=== PATIENT | male | born 1955 | race Caucasian/White ===

== ENCOUNTER 2020-05-02 09:47 | Observation (INO) ==
[2020-05-02] MEDS ORDERED: PANTOPRAZOLE 40 MG VIAL IV STA (10:22)
[2020-05-02] MEDS ORDERED: SODIUM CHLORIDE 0.9% 1,000 ML IV STA (10:22)
[2020-05-02 10:52] LABS: Basophils # 0.1 10*3/uL (0.0-0.2); Basophils % 0.5 % (0.0-0.8); Eosinophils # 0.3 10*3/uL (0.0-0.87); Eosinophils % 2.3 % (0.00-10.9); Hematocrit 32.9 VOL% (42.0-52.0); Hemoglobin 10.9 GM/DL (14.0-18.0); Immature Granulocytes % 0.6 %; Immature Granulocytes Absolute 0.07 #; Lymphocytes % 17.5 % (21.2-54.2); Mean Corpuscular HGB Conc 33.1 GM/DL (32-36); Mean Corpuscular Volume 95.1 FL (87-102); Mean Platelet Volume 10.1 FL (9.6-12.0); Monocytes % 9.7 % (1.7-12.7); Neutrophils % 69.4 % (38.7-73.9); Platelet Count 270 T/CUMM (130-400); Red Blood Count 3.46 MC/CUMM (3.8-5.5); Red Cell Distribution Width 13.2 % (9.3-17.3); White Blood Count 11.6 T/CUMM (4-12)
[2020-05-02 11:03] LABS: INR 0.9; Partial Thromboplastin Time 24.6 SECS (23.9-33.8)
[2020-05-02 11:12] LABS: Bilirubin,Total 0.4 MG/DL (0.2-1.0); Calcium 8.7 MG/DL (8.5-10.1); Osmolality,Calculated 266.2 MOS/KG (273-304); Potassium 4.1 MMOL/L (3.5-5.1); Total Protein 7.3 G/DL (6.4-8.3)
[2020-05-02] MEDS ORDERED: GLUCAGON 1 MG VIAL IM PRN (14:05)
[2020-05-02] MEDS ORDERED: DEXTROSE 50% 25 GM/50 ML VIAL IV PRN (14:05)
[2020-05-02] MEDS ORDERED: ONDANSETRON 4 MG/2 ML VIAL IV PRN (14:05)
[2020-05-02] MEDS ORDERED: NICOTINE 21 MG/24 HR PATCH TRANSDERM SCH (14:30)
[2020-05-02] MEDS ORDERED: SODIUM CHLORIDE 0.9% 1,000 ML IV SCH (14:30)
[2020-05-02] MEDS ORDERED: ALBUTEROL 2.5 MG/3 ML NEB RESP TX PRN (15:44)
[2020-05-02] MEDS ORDERED: LORazepam 2 MG/1 ML VIAL IV PRN (16:15)
[2020-05-02] MEDS ORDERED: THIAMINE INJ 100 MG, FOLIC ACID INJ 1 MG, MULTIVITAMIN INJ 10 ML in SODIUM CHLORIDE 0.9... IV SCH (16:30)
[2020-05-02 16:37] LABS: Hematocrit 30.7 VOL% (42.0-52.0); Hemoglobin 9.9 GM/DL (14.0-18.0)
[2020-05-03 00:49] LABS: Hematocrit 30.5 VOL% (42.0-52.0); Hemoglobin 9.9 GM/DL (14.0-18.0)
[2020-05-03 05:27] LABS: Basophils % 0.4 % (0.0-0.8); Eosinophils # 0.2 10*3/uL (0.0-0.87); Eosinophils % 2.4 % (0.00-10.9); Hematocrit 32.1 VOL% (42.0-52.0); Hemoglobin 10.3 GM/DL (14.0-18.0); Immature Granulocytes % 0.5 %; Immature Granulocytes Absolute 0.04 #; Lymphocytes # 1.5 10*3/uL (1.4-4.0); Lymphocytes % 19.8 % (21.2-54.2); Mean Corpuscular HGB Conc 32.1 GM/DL (32-36); Mean Corpuscular Volume 97.3 FL (87-102); Mean Platelet Volume 9.7 FL (9.6-12.0); Neutrophils % 66.9 % (38.7-73.9); Platelet Count 223 T/CUMM (130-400); Red Cell Distribution Width 13.2 % (9.3-17.3); White Blood Count 7.6 T/CUMM (4-12)
[2020-05-03 06:01] LABS: Calcium 8.2 MG/DL (8.5-10.1); Osmolality,Calculated 271.7 MOS/KG (273-304); Potassium 3.6 MMOL/L (3.5-5.1)
[2020-05-03] MEDS ORDERED: IPRATROPIUM 500 MCG/2.5 ML NEB RESP TX SCH (09:00)
[2020-05-03] MEDS ORDERED: PANTOPRAZOLE 40 MG VIAL IV SCH (09:00)
[2020-05-03 13:40] VITALS: BP 150/83
== END 2020-05-03 13:05 | disposition left against medical advice (07) ==
LOC: N.EDINP 09:47 → N.ED 09:47 → SUATTDRO 14:05 → N.3E 15:45
PROVIDERS: ADMIT Internal Medicine; ATTEND Phlebology

== ENCOUNTER 2020-12-24 13:19 | Observation (INO) ==
[2020-12-24] MEDS ORDERED: ASPIRIN 325 MG TABLET PO STA (13:25)
[2020-12-24 13:48] LABS: Basophils % 0.2 % (0.0-0.8); Eosinophils % 0.2 % (0.00-10.9); Hematocrit 34.9 VOL% (42.0-52.0); Hemoglobin 11.4 GM/DL (14.0-18.0); Immature Granulocytes % 0.4 %; Immature Granulocytes Absolute 0.05 #; Mean Corpuscular HGB Conc 32.7 GM/DL (32-36); Mean Corpuscular Volume 80.2 FL (87-102); Mean Platelet Volume 9.1 FL (9.6-12.0); Monocytes % 5.2 % (1.7-12.7); Platelet Count 267 T/CUMM (130-400); Red Blood Count 4.35 MC/CUMM (3.8-5.5); Red Cell Distribution Width 15.6 % (9.3-17.3); White Blood Count 12.2 T/CUMM (4-12)
[2020-12-24 14:07] LABS: Alanine Aminotransferase 20 U/L (16-61); Albumin 3.9 G/DL (3.4-5.0); Alkaline Phosphatase 91 U/L (45-117); Aspartate Amino Transferase 21 U/L (0-37); Bilirubin,Total < 0.39 MG/DL (0.20-1.00); Blood Urea Nitrogen 14 MG/DL (7-18); Calcium 9.2 MG/DL (8.5-10.1); Carbon Dioxide 21 MMOL/L (21-32); Estimated Glom Filtration Rate 63 ML/MIN; Glucose 161 MG/DL (74-106); Osmolality,Calculated 258.2 MOS/KG (273-304); Potassium 5.2 MMOL/L (3.5-5.1); Sodium 127 MMOL/L (136-145); Total Protein 7.5 G/DL (6.4-8.2)
[2020-12-24] MEDS ORDERED: SODIUM CHLORIDE 0.9% 500 ML IV STA (14:10)
[2020-12-24] MEDS ORDERED: PIPERACILLIN/TAZOBACTAM 3,375 MG in SODIUM CHLORIDE 0.9% 100 ML IV STA (15:39)
[2020-12-24] MEDS ORDERED: ONDANSETRON 4 MG/2 ML VIAL IV PRN (15:49)
[2020-12-24] MEDS ORDERED: ACETAMINOPHEN 325 MG TABLET PO PRN (15:49)
[2020-12-24] MEDS ORDERED: MORPHINE 10 MG/1 ML VIAL IV STA (15:52)
[2020-12-24] MEDS: SODIUM CHLORIDE 0.45% 1,000 ML IV SCH (16:51)
[2020-12-24] MEDS: PIPERACILLIN/TAZOBACTAM 3,375 MG in SODIUM CHLORIDE 0.9% 100 ML IV SCH (18:44)
[2020-12-25] MEDS: PIPERACILLIN/TAZOBACTAM 3,375 MG in SODIUM CHLORIDE 0.9% 100 ML IV SCH ×3 (00:34→18:14)
[2020-12-25] MEDS: SODIUM CHLORIDE 0.45% 1,000 ML IV SCH (00:35)
[2020-12-25] MEDS: PANTOPRAZOLE 40 MG TABLET PO SCH (08:49)
[2020-12-25] MEDS ORDERED: ASPIRIN EC 81 MG TABLET PO PRN (09:18)
[2020-12-25] MEDS ORDERED: ALBUTEROL 2.5 MG/3 ML NEB RESP TX PRN (09:18)
[2020-12-25 09:34] LABS: Basophils % 0.2 % (0.0-0.8); Eosinophils # 0.1 10*3/uL (0.0-0.87); Eosinophils % 1.4 % (0.00-10.9); Hematocrit 30.4 VOL% (42.0-52.0); Hemoglobin 10.1 GM/DL (14.0-18.0); Immature Granulocytes % 0.5 %; Immature Granulocytes Absolute 0.04 #; Lymphocytes # 1.6 10*3/uL (1.4-4.0); Mean Corpuscular HGB Conc 33.2 GM/DL (32-36); Mean Corpuscular Volume 80.6 FL (87-102); Mean Platelet Volume 9.6 FL (9.6-12.0); Monocytes % 16.2 % (1.7-12.7); Neutrophils % 63.7 % (38.7-73.9); Platelet Count 233 T/CUMM (130-400); Red Blood Count 3.77 MC/CUMM (3.8-5.5); Red Cell Distribution Width 15.7 % (9.3-17.3); White Blood Count 8.7 T/CUMM (4-12)
[2020-12-25 09:53] LABS: Eosinophils 2 % (0-10); Hypochromasia 1+; Lymphocytes 19 % (20-55); Microcytosis 1+; Platelet Estimate Adequate; Segmented Neutrophils 65 % (50-85); Total Cells Counted 100
[2020-12-25 09:54] LABS: Bilirubin,Total 0.4 MG/DL (0.20-1.00); Calcium 8.6 MG/DL (8.5-10.1); Osmolality,Calculated 264.4 MOS/KG (273-304); Potassium 4.5 MMOL/L (3.5-5.1); Total Protein 6.8 G/DL (6.4-8.2)
[2020-12-25] MEDS ORDERED: MAGNESIUM SULF RIDER 2 GM/50 ML PREMIX IV PRN (10:03)
[2020-12-25] MEDS ORDERED: MAGNESIUM SULF RIDER 4 GM/100 ML PREMIX IV PRN (10:03)
[2020-12-25] MEDS ORDERED: DIAZEPAM 5 MG TABLET PO PRN (10:33)
[2020-12-25] MEDS: IPRATROPIUM 500 MCG/2.5 ML NEB RESP TX SCH ×3 (11:44→20:35)
[2020-12-25 13:00] LABS: Bilirubin,Urine Negative (Negative); Blood, Urine Negative (Negative); Glucose,Urine (UA) Negative (Negative); Ketones,Urine Negative (Negative); Mucus,Urine Occasional /LPF (Occasional); Nitrite,Urine Negative (Negative); Protein,Urine Negative; RBC,Urine <1 /HPF (0-4); Squamous Epithelial Cell,Urine Occasional /HPF (0-10); Urine Appearance CLEAR (Clear); Urine Color Yellow (Yellow); Urine Specific Gravity 1.015 (1.001-1.035); Urine Urobilinogen < 2.0 EU/DL (0.2-1.0)
[2020-12-25] MEDS: THIAMINE 100 MG TABLET PO SCH (15:54)
[2020-12-25] MEDS: NICOTINE 21 MG/24 HR PATCH TRANSDERM SCH (15:54)
[2020-12-25] MEDS: FOLIC ACID 1 MG TABLET PO SCH (15:54)
[2020-12-25] MEDS: MULTIVITAMIN (CENTRUM) TABLET PO SCH (15:54)
[2020-12-25] MEDS: GABAPENTIN 100 MG CAPSULE PO SCH (20:17)
[2020-12-25] MEDS: TAMSULOSIN 0.4 MG CAPSULE PO SCH (20:17)
[2020-12-26] MEDS: PIPERACILLIN/TAZOBACTAM 3,375 MG in SODIUM CHLORIDE 0.9% 100 ML IV SCH ×3 (01:00→16:31)
[2020-12-26] MEDS: IPRATROPIUM 500 MCG/2.5 ML NEB RESP TX SCH ×4 (07:17→20:27)
[2020-12-26] MEDS: MULTIVITAMIN (CENTRUM) TABLET PO SCH (08:56)
[2020-12-26] MEDS: THIAMINE 100 MG TABLET PO SCH (08:56)
[2020-12-26] MEDS: GABAPENTIN 100 MG CAPSULE PO SCH ×2 (08:56→21:05)
[2020-12-26] MEDS: NICOTINE 21 MG/24 HR PATCH TRANSDERM SCH (08:56)
[2020-12-26] MEDS: FOLIC ACID 1 MG TABLET PO SCH (08:56)
[2020-12-26] MEDS: amLODIPine 10 MG TABLET PO SCH (08:56)
[2020-12-26] MEDS: LOSARTAN 50 MG TABLET PO SCH (08:57)
[2020-12-26] MEDS: PANTOPRAZOLE 40 MG TABLET PO SCH (08:57)
[2020-12-26] MEDS: SODIUM CHLORIDE 0.45% 1,000 ML IV SCH (17:54)
[2020-12-26] MEDS ORDERED: ALUMINUM/MAGNES/SIMETH MAX STR 30 ML UDCUP PO PRN (20:54)
[2020-12-26] MEDS: TAMSULOSIN 0.4 MG CAPSULE PO SCH (21:05)
[2020-12-27] MEDS: PIPERACILLIN/TAZOBACTAM 3,375 MG in SODIUM CHLORIDE 0.9% 100 ML IV SCH ×2 (01:03→11:27)
[2020-12-27] MEDS: IPRATROPIUM 500 MCG/2.5 ML NEB RESP TX SCH ×2 (07:22→11:30)
[2020-12-27] MEDS ORDERED: INDOCYANINE GREEN 25 MG VIAL IV ONE (08:24)
[2020-12-27] MEDS ORDERED: LIDOCAINE 1%/EPI INJ 20 ML VIAL ONE (08:26)
[2020-12-27] MEDS ORDERED: HYDROmorphone 2 MG/1 ML VIAL IV PRN (08:26)
[2020-12-27] MEDS ORDERED: ONDANSETRON 4 MG/2 ML VIAL IV PRN (08:26)
[2020-12-27] MEDS ORDERED: PROMETHAZINE INJ 25 MG in SODIUM CHLORIDE 0.9% 50 ML IV PRN (08:26)
[2020-12-27] MEDS ORDERED: diphenhydrAMINE 50 MG/1 ML VIAL IV PRN (08:26)
[2020-12-27] MEDS ORDERED: BUPIVACAINE MPF 0.25% 30 ML VIAL ONE (08:26)
[2020-12-27] MEDS ORDERED: TISSUE ADHESIVE 1 EACH APPLICATOR TOP ONE (08:26)
[2020-12-27] MEDS ORDERED: MEPERIDINE 50 MG/1 ML VIAL IV PRN (08:30)
[2020-12-27] MEDS: SODIUM CHLORIDE 0.45% 1,000 ML IV SCH (08:46)
[2020-12-27] MEDS ORDERED: ACETAMINOPHEN INJ 1,000 MG/100 ML VIAL IV ONE (09:12)
[2020-12-27] MEDS ORDERED: PHENYLEPHRINE 1 MG/10 ML SYRINGE IV ONE (09:12)
[2020-12-27] MEDS ORDERED: fentaNYL 100 MCG/2 ML VIAL ONE ×2 (09:12→10:05)
[2020-12-27] MEDS ORDERED: LIDOCAINE 2% 5 ML VIAL ONE (09:12)
[2020-12-27] MEDS ORDERED: SEVOFLURANE 1 UNIT/15 MINUTE INH ONE (09:12)
[2020-12-27] MEDS ORDERED: ONDANSETRON 4 MG/2 ML VIAL ONE (09:12)
[2020-12-27] MEDS ORDERED: ETOMIDATE 40 MG/20 ML VIAL IV ONE (09:12)
[2020-12-27] MEDS ORDERED: propofoL 200 MG/20 ML VIAL IV ONE (09:12)
[2020-12-27] MEDS ORDERED: MIDAZOLAM 2 MG/2 ML VIAL ONE (09:12)
[2020-12-27] MEDS ORDERED: ROCURONIUM 50 MG/5 ML VIAL IV ONE (09:12)
[2020-12-27] MEDS ORDERED: SUGAMMADEX 200 MG/2 ML VIAL IV ONE (10:02)
[2020-12-27] MEDS: LOSARTAN 50 MG TABLET PO SCH (11:26)
[2020-12-27] MEDS: FOLIC ACID 1 MG TABLET PO SCH (11:26)
[2020-12-27] MEDS: NICOTINE 21 MG/24 HR PATCH TRANSDERM SCH (11:26)
[2020-12-27] MEDS: PANTOPRAZOLE 40 MG TABLET PO SCH (11:26)
[2020-12-27] MEDS: MULTIVITAMIN (CENTRUM) TABLET PO SCH (11:26)
[2020-12-27] MEDS: GABAPENTIN 100 MG CAPSULE PO SCH (11:26)
[2020-12-27] MEDS: amLODIPine 10 MG TABLET PO SCH (11:26)
[2020-12-27] MEDS: THIAMINE 100 MG TABLET PO SCH (11:27)
[2020-12-27 11:29] VITALS: BP 130/68
== END 2020-12-27 12:43 | disposition home or self-care (01) ==
LOC: N.ED 13:19 → N.EDINP 13:19 → N.5E 16:57
PROVIDERS: ADMIT Student in an Organized Health Care Education/Training Program; ATTEND Student in an Organized Health Care Education/Training Program

== ENCOUNTER 2022-03-20 13:47 | Inpatient (IN) ==
[2022-03-20 18:12] LABS: Urine Appearance Cloudy (Clear); Urine Color Yellow (Yellow)
[2022-03-20 18:12] LABS: Basophils % 0.2 % (0.0-0.8); Hemoglobin 10.8 GM/DL (14.0-18.0); Immature Granulocytes % 1.1 %; Immature Granulocytes Absolute 0.13 #; Lymphocytes % 8.1 % (21.2-54.2); Mean Corpuscular HGB Conc 34.8 GM/DL (32-36); Mean Corpuscular Volume 89.3 FL (87-102); Mean Platelet Volume 9.4 FL (9.6-12.0); Monocytes # 0.8 10*3/uL (0.11-0.8); Monocytes % 6.5 % (1.7-12.7); Neutrophils % 84.1 % (38.7-73.9); Platelet Count 220 T/CUMM (130-400); Red Blood Count 3.47 MC/CUMM (3.8-5.5); White Blood Count 11.8 T/CUMM (4-12)
[2022-03-20 18:13] LABS: Bilirubin,Urine Small mg/dL (Negative); Blood, Urine Moderate mg/dL (Negative); Glucose,Urine (UA) Negative (Negative); Ketones,Urine Trace mg/dL (Negative); Nitrite,Urine Positive (Negative); Protein,Urine 100 mg/dL (Negative); Urine Specific Gravity >= 1.030 (1.001-1.035)
[2022-03-20 18:19] LABS: Mucus,Urine Few /LPF (Occasional); RBC,Urine 14 /HPF (0-4); Squamous Epithelial Cell,Urine Few /HPF (0-10)
[2022-03-20 18:31] LABS: Bilirubin,Total 0.4 MG/DL (0.20-1.00); Calcium 8.3 MG/DL (8.5-10.1); Osmolality,Calculated 255.1 MOS/KG (273-304)
[2022-03-20] MEDS ORDERED: SODIUM CHLORIDE 0.9% 1,000 ML IV ONE (18:51)
[2022-03-20] MEDS ORDERED: ACETAMINOPHEN 325 MG TABLET PO PRN (20:01)
[2022-03-20] MEDS ORDERED: hydrALAZINE 20 MG/1 ML VIAL IV PRN (20:10)
[2022-03-20] MEDS ORDERED: MORPHINE 2 MG/1 ML SYRINGE IV PRN (20:10)
[2022-03-20] MEDS ORDERED: LORazepam 2 MG/1 ML VIAL IV PRN (20:10)
[2022-03-20] MEDS ORDERED: ONDANSETRON 4 MG/2 ML VIAL IV PRN (20:10)
[2022-03-20] MEDS ORDERED: ALBUTEROL/IPRATROPIUM 3 ML NEB RESP TX PRN (20:10)
[2022-03-20] MEDS ORDERED: MAGNESIUM SULF RIDER 2 GM/50 ML PREMIX IV ONE (20:57)
[2022-03-20] MEDS: cefTRIAXone 1,000 MG in SODIUM CHLORIDE 0.9% 100 ML IV SCH (21:45)
[2022-03-20] MEDS: SODIUM CHLORIDE 0.9% 1,000 ML IV SCH (21:59)
[2022-03-20] MEDS: THIAMINE 100 MG TABLET PO SCH (22:00)
[2022-03-21] MEDS: NICOTINE 21 MG/24 HR PATCH TRANSDERM PRN (04:11)
[2022-03-21 06:02] LABS: Basophils % 0.3 % (0.0-0.8); Eosinophils % 0.3 % (0.00-10.9); Hematocrit 26.5 VOL% (42.0-52.0); Immature Granulocytes % 2.7 %; Immature Granulocytes Absolute 0.24 #; Lymphocytes # 1.5 10*3/uL (1.4-4.0); Lymphocytes % 16.8 % (21.2-54.2); Mean Corpuscular Volume 91.4 FL (87-102); Mean Platelet Volume 9.7 FL (9.6-12.0); Monocytes # 0.7 10*3/uL (0.11-0.8); Monocytes % 8.4 % (1.7-12.7); Neutrophils % 71.5 % (38.7-73.9); Platelet Count 197 T/CUMM (130-400); Red Cell Distribution Width 13.1 % (9.3-17.3); White Blood Count 8.8 T/CUMM (4-12)
[2022-03-21 06:15] LABS: Calcium 8.1 MG/DL (8.5-10.1); Osmolality,Calculated 256.8 MOS/KG (273-304); Potassium 3.7 MMOL/L (3.5-5.1)
[2022-03-21 06:21] LABS: % Iron Saturation 12.1 % (18-50); Ferritin 111.6 ng/mL (26-388)
[2022-03-21 06:23] LABS: Folate 4.89 NG/ML (5.38-24.0)
[2022-03-21] MEDS ORDERED: FOLIC ACID 1 MG TABLET PO SCH (09:00)
[2022-03-21] MEDS: PANTOPRAZOLE 40 MG TABLET PO SCH (09:41)
[2022-03-21] MEDS: MELOXICAM 7.5 MG TABLET PO SCH (09:41)
[2022-03-21] MEDS: MULTIVITAMIN (CENTRUM) TABLET PO SCH (09:41)
[2022-03-21] MEDS: THIAMINE 100 MG TABLET PO SCH ×2 (09:41→20:31)
[2022-03-21] MEDS: FOLIC ACID 1 MG TABLET PO SCH ×2 (09:42→20:31)
[2022-03-21] MEDS: SODIUM CHLORIDE 0.9% 1,000 ML IV SCH ×2 (09:45→21:55)
[2022-03-21] MEDS: VANCOMYCIN INJ 1,000 MG in SODIUM CHLORIDE 0.9% 250 ML IV SCH (15:39)
[2022-03-21] MEDS: cefTRIAXone 1,000 MG in SODIUM CHLORIDE 0.9% 100 ML IV SCH (20:31)
[2022-03-22] MEDS: VANCOMYCIN INJ 1,000 MG in SODIUM CHLORIDE 0.9% 250 ML IV SCH ×2 (03:00→21:24)
[2022-03-22 06:43] LABS: Basophils % 0.4 % (0.0-0.8); Eosinophils # 0.1 10*3/uL (0.0-0.87); Eosinophils % 0.7 % (0.00-10.9); Hematocrit 28.2 VOL% (42.0-52.0); Hemoglobin 9.4 GM/DL (14.0-18.0); Immature Granulocytes % 0.6 %; Immature Granulocytes Absolute 0.07 #; Lymphocytes # 1.5 10*3/uL (1.4-4.0); Lymphocytes % 13.3 % (21.2-54.2); Mean Corpuscular HGB Conc 33.3 GM/DL (32-36); Mean Corpuscular Volume 92.5 FL (87-102); Mean Platelet Volume 9.8 FL (9.6-12.0); Monocytes # 0.6 10*3/uL (0.11-0.8); Monocytes % 5.7 % (1.7-12.7); Neutrophils % 79.3 % (38.7-73.9); Platelet Count 222 T/CUMM (130-400); Red Blood Count 3.05 MC/CUMM (3.8-5.5); Red Cell Distribution Width 13.2 % (9.3-17.3); White Blood Count 11.1 T/CUMM (4-12)
[2022-03-22 07:08] LABS: Calcium 8.2 MG/DL (8.5-10.1); Osmolality,Calculated 264.2 MOS/KG (273-304); Potassium 3.7 MMOL/L (3.5-5.1)
[2022-03-22] MEDS: MELOXICAM 7.5 MG TABLET PO SCH (08:49)
[2022-03-22] MEDS: THIAMINE 100 MG TABLET PO SCH ×2 (08:49→21:23)
[2022-03-22] MEDS: MULTIVITAMIN (CENTRUM) TABLET PO SCH (08:49)
[2022-03-22] MEDS: FOLIC ACID 1 MG TABLET PO SCH ×2 (08:49→21:23)
[2022-03-22] MEDS: FERROUS SULFATE 325 MG TABLET PO SCH (08:50)
[2022-03-22] MEDS: PANTOPRAZOLE 40 MG TABLET PO SCH (08:50)
[2022-03-22] MEDS ORDERED: TAMSULOSIN 0.4 MG CAPSULE PO SCH (09:00)
[2022-03-22] MEDS: SODIUM CHLORIDE 0.9% 1,000 ML IV SCH ×4 (10:58→21:46)
[2022-03-22] MEDS: ceFAZolin 2,000 MG/50 ML DUPLEX IV SCH ×2 (14:26→21:25)
[2022-03-22] MEDS: NICOTINE 21 MG/24 HR PATCH TRANSDERM PRN (16:08)
[2022-03-22] MEDS: TAMSULOSIN 0.4 MG CAPSULE PO SCH (21:23)
[2022-03-23 05:17] LABS: Basophils # 0.1 10*3/uL (0.0-0.2); Basophils % 0.5 % (0.0-0.8); Eosinophils # 0.1 10*3/uL (0.0-0.87); Eosinophils % 0.6 % (0.00-10.9); Hemoglobin 8.7 GM/DL (14.0-18.0); Immature Granulocytes % 0.9 %; Immature Granulocytes Absolute 0.11 #; Lymphocytes # 1.4 10*3/uL (1.4-4.0); Lymphocytes % 11.1 % (21.2-54.2); Mean Corpuscular HGB Conc 33.5 GM/DL (32-36); Mean Corpuscular Volume 93.9 FL (87-102); Mean Platelet Volume 9.5 FL (9.6-12.0); Monocytes # 0.7 10*3/uL (0.11-0.8); Neutrophils % 80.9 % (38.7-73.9); Platelet Count 240 T/CUMM (130-400); Red Blood Count 2.77 MC/CUMM (3.8-5.5); White Blood Count 12.4 T/CUMM (4-12)
[2022-03-23 05:42] LABS: Calcium 8.1 MG/DL (8.5-10.1); Osmolality,Calculated 263.4 MOS/KG (273-304); Potassium 3.6 MMOL/L (3.5-5.1)
[2022-03-23] MEDS: ceFAZolin 2,000 MG/50 ML DUPLEX IV SCH ×3 (05:43→22:45)
[2022-03-23] MEDS: FOLIC ACID 1 MG TABLET PO SCH ×2 (09:27→21:25)
[2022-03-23] MEDS: FERROUS SULFATE 325 MG TABLET PO SCH (09:27)
[2022-03-23] MEDS: MULTIVITAMIN (CENTRUM) TABLET PO SCH (09:27)
[2022-03-23] MEDS: PANTOPRAZOLE 40 MG TABLET PO SCH (09:27)
[2022-03-23] MEDS: MELOXICAM 7.5 MG TABLET PO SCH (09:27)
[2022-03-23] MEDS: THIAMINE 100 MG TABLET PO SCH ×2 (09:27→21:25)
[2022-03-23] MEDS: VANCOMYCIN INJ 1,000 MG in SODIUM CHLORIDE 0.9% 250 ML IV SCH ×2 (09:29→21:57)
[2022-03-23] MEDS ORDERED: ENOXAPARIN 40 MG/0.4 ML SYRINGE SUBCUT ONE (09:30)
[2022-03-23] MEDS: SODIUM CHLORIDE 0.9% 1,000 ML IV SCH (09:30)
[2022-03-23] MEDS: MORPHINE 2 MG/1 ML SYRINGE IV PRN (13:51)
[2022-03-23] MEDS: NICOTINE 21 MG/24 HR PATCH TRANSDERM SCH (18:57)
[2022-03-23] MEDS: TAMSULOSIN 0.4 MG CAPSULE PO SCH (21:25)
[2022-03-23] MEDS: DOCUSATE SODIUM 100 MG CAPSULE PO SCH (21:25)
[2022-03-24] MEDS: MORPHINE 2 MG/1 ML SYRINGE IV PRN (02:24)
[2022-03-24 05:30] LABS: Basophils # 0.1 10*3/uL (0.0-0.2); Basophils % 0.5 % (0.0-0.8); Eosinophils # 0.1 10*3/uL (0.0-0.87); Eosinophils % 0.9 % (0.00-10.9); Hematocrit 23.4 VOL% (42.0-52.0); Hemoglobin 7.7 GM/DL (14.0-18.0); Immature Granulocytes % 0.9 %; Immature Granulocytes Absolute 0.08 #; Lymphocytes # 1.4 10*3/uL (1.4-4.0); Mean Corpuscular HGB Conc 32.9 GM/DL (32-36); Mean Corpuscular Volume 92.9 FL (87-102); Mean Platelet Volume 9.4 FL (9.6-12.0); Monocytes # 0.8 10*3/uL (0.11-0.8); Monocytes % 9.1 % (1.7-12.7); Neutrophils % 73.6 % (38.7-73.9); Platelet Count 231 T/CUMM (130-400); Red Blood Count 2.52 MC/CUMM (3.8-5.5); Red Cell Distribution Width 13.2 % (9.3-17.3); White Blood Count 9.2 T/CUMM (4-12)
[2022-03-24 06:07] LABS: Calcium 7.9 MG/DL (8.5-10.1); Osmolality,Calculated 266.1 MOS/KG (273-304); Potassium 3.3 MMOL/L (3.5-5.1)
[2022-03-24] MEDS: ceFAZolin 2,000 MG/50 ML DUPLEX IV SCH ×3 (06:33→22:00)
[2022-03-24] MEDS ORDERED: POTASSIUM CHLORIDE 20 MEQ TABLET PO ONE (08:00)
[2022-03-24] MEDS: THIAMINE 100 MG TABLET PO SCH ×2 (09:04→20:28)
[2022-03-24] MEDS: MELOXICAM 7.5 MG TABLET PO SCH (09:04)
[2022-03-24] MEDS: PANTOPRAZOLE 40 MG TABLET PO SCH (09:04)
[2022-03-24] MEDS: DOCUSATE SODIUM 100 MG CAPSULE PO SCH ×2 (09:04→20:28)
[2022-03-24] MEDS: MULTIVITAMIN (CENTRUM) TABLET PO SCH (09:05)
[2022-03-24] MEDS: FERROUS SULFATE 325 MG TABLET PO SCH (09:05)
[2022-03-24] MEDS: POLYETHYLENE GLYCOL POWDER 17 GM PACK PO SCH (09:05)
[2022-03-24] MEDS: NICOTINE 21 MG/24 HR PATCH TRANSDERM SCH (09:05)
[2022-03-24] MEDS: FOLIC ACID 1 MG TABLET PO SCH ×2 (09:05→20:28)
[2022-03-24] MEDS ORDERED: MAGNESIUM SULF RIDER 4 GM/100 ML PREMIX IV ONE (10:30)
[2022-03-24] MEDS: SODIUM CHLORIDE 0.9% 1,000 ML IV SCH (12:08)
[2022-03-24] MEDS: VANCOMYCIN INJ 1,000 MG in SODIUM CHLORIDE 0.9% 250 ML IV SCH ×2 (12:09→21:30)
[2022-03-24 16:08] LABS: Hematocrit 24.4 VOL% (42.0-52.0)
[2022-03-24] MEDS: chlordiazePOXIDE 10 MG CAPSULE PO PRN (20:28)
[2022-03-24] MEDS: TAMSULOSIN 0.4 MG CAPSULE PO SCH (20:28)
[2022-03-25 05:17] LABS: Basophils # 0.1 10*3/uL (0.0-0.2); Basophils % 0.5 % (0.0-0.8); Eosinophils # 0.1 10*3/uL (0.0-0.87); Eosinophils % 1.2 % (0.00-10.9); Hematocrit 25.9 VOL% (42.0-52.0); Hemoglobin 8.5 GM/DL (14.0-18.0); Immature Granulocytes % 0.8 %; Immature Granulocytes Absolute 0.08 #; Lymphocytes # 1.4 10*3/uL (1.4-4.0); Lymphocytes % 14.8 % (21.2-54.2); Mean Corpuscular HGB Conc 32.8 GM/DL (32-36); Mean Corpuscular Volume 92.2 FL (87-102); Mean Platelet Volume 9.5 FL (9.6-12.0); Monocytes # 0.9 10*3/uL (0.11-0.8); Monocytes % 9.1 % (1.7-12.7); Neutrophils % 73.6 % (38.7-73.9); Platelet Count 291 T/CUMM (130-400); Red Blood Count 2.81 MC/CUMM (3.8-5.5); Red Cell Distribution Width 13.2 % (9.3-17.3); White Blood Count 9.6 T/CUMM (4-12)
[2022-03-25 05:34] LABS: Calcium 8.3 MG/DL (8.5-10.1); Osmolality,Calculated 267.1 MOS/KG (273-304); Potassium 4.1 MMOL/L (3.5-5.1)
[2022-03-25] MEDS: ceFAZolin 2,000 MG/50 ML DUPLEX IV SCH ×2 (06:00→16:48)
[2022-03-25] MEDS: VANCOMYCIN INJ 1,000 MG in SODIUM CHLORIDE 0.9% 250 ML IV SCH (09:15)
[2022-03-25] MEDS: NICOTINE 21 MG/24 HR PATCH TRANSDERM SCH (09:16)
[2022-03-25] MEDS: FOLIC ACID 1 MG TABLET PO SCH ×2 (09:56→20:59)
[2022-03-25] MEDS: MELOXICAM 7.5 MG TABLET PO SCH (09:56)
[2022-03-25] MEDS: FERROUS SULFATE 325 MG TABLET PO SCH (09:56)
[2022-03-25] MEDS: THIAMINE 100 MG TABLET PO SCH ×2 (09:56→20:59)
[2022-03-25] MEDS: PANTOPRAZOLE 40 MG TABLET PO SCH (09:56)
[2022-03-25] MEDS: MULTIVITAMIN (CENTRUM) TABLET PO SCH (09:56)
[2022-03-25] MEDS ORDERED: ALBUTEROL 2.5 MG/3 ML NEB RESP TX ONE (10:14)
[2022-03-25] MEDS ORDERED: ASPIRIN EC 81 MG TABLET PO PRN (10:18)
[2022-03-25] MEDS: DOCUSATE SODIUM 100 MG CAPSULE PO SCH ×2 (10:19→20:59)
[2022-03-25] MEDS: POLYETHYLENE GLYCOL POWDER 17 GM PACK PO SCH (10:19)
[2022-03-25] MEDS: SODIUM CHLORIDE 0.9% 1,000 ML IV SCH ×2 (10:19→12:39)
[2022-03-25] MEDS ORDERED: MAGNESIUM HYDROXIDE SUSP 30 ML UDCUP PO PRN (10:23)
[2022-03-25] MEDS ORDERED: ETOMIDATE 40 MG/20 ML VIAL IV ONE (14:04)
[2022-03-25] MEDS ORDERED: PHENYLEPHRINE 1 MG/10 ML SYRINGE IV ONE ×2 (14:04→15:47)
[2022-03-25] MEDS ORDERED: LIDOCAINE 2% 5 ML VIAL ONE (14:04)
[2022-03-25] MEDS ORDERED: propofoL 200 MG/20 ML VIAL IV ONE (14:04)
[2022-03-25] MEDS ORDERED: ROCURONIUM 50 MG/5 ML VIAL IV ONE (14:04)
[2022-03-25] MEDS ORDERED: fentaNYL 100 MCG/2 ML VIAL ONE ×2 (14:05→15:35)
[2022-03-25] MEDS ORDERED: MIDAZOLAM 2 MG/2 ML VIAL ONE (14:05)
[2022-03-25] MEDS ORDERED: ACETAMINOPHEN INJ 1,000 MG/100 ML VIAL IV ONE (15:35)
[2022-03-25] MEDS: MORPHINE 2 MG/1 ML SYRINGE IV PRN (16:54)
[2022-03-25] MEDS: LACTATED RINGERS 1,000 ML IV SCH (16:55)
[2022-03-25 17:38] LABS: Cholesterol Crystals None Seen /LPF
[2022-03-25] MEDS: chlordiazePOXIDE 10 MG CAPSULE PO PRN (20:59)
[2022-03-25] MEDS: TAMSULOSIN 0.4 MG CAPSULE PO SCH (20:59)
[2022-03-26] MEDS: ALBUTEROL 2.5 MG/3 ML NEB RESP TX PRN ×2 (00:15→19:30)
[2022-03-26] MEDS: ceFAZolin 2,000 MG/50 ML DUPLEX IV SCH ×4 (00:15→21:32)
[2022-03-26] MEDS: GABAPENTIN 100 MG CAPSULE PO SCH ×3 (00:44→21:31)
[2022-03-26] MEDS: LACTATED RINGERS 1,000 ML IV SCH ×2 (01:34→08:31)
[2022-03-26 05:57] LABS: Basophils % 0.5 % (0.0-0.8); Eosinophils # 0.2 10*3/uL (0.0-0.87); Eosinophils % 1.8 % (0.00-10.9); Hematocrit 21.5 VOL% (42.0-52.0); Immature Granulocytes % 0.6 %; Immature Granulocytes Absolute 0.05 #; Lymphocytes # 1.4 10*3/uL (1.4-4.0); Lymphocytes % 16.9 % (21.2-54.2); Mean Corpuscular HGB Conc 32.6 GM/DL (32-36); Mean Corpuscular Volume 93.9 FL (87-102); Mean Platelet Volume 9.3 FL (9.6-12.0); Monocytes # 0.8 10*3/uL (0.11-0.8); Monocytes % 9.2 % (1.7-12.7); Platelet Count 240 T/CUMM (130-400); Red Blood Count 2.29 MC/CUMM (3.8-5.5); Red Cell Distribution Width 13.4 % (9.3-17.3); White Blood Count 8.4 T/CUMM (4-12)
[2022-03-26 06:13] LABS: Calcium 7.7 MG/DL (8.5-10.1); Osmolality,Calculated 271.7 MOS/KG (273-304)
[2022-03-26] MEDS: VANCOMYCIN INJ 1,000 MG in SODIUM CHLORIDE 0.9% 250 ML IV SCH ×2 (06:37→14:12)
[2022-03-26 06:45] LABS: Platelet Estimate Normal
[2022-03-26] MEDS ORDERED: SODIUM CHLORIDE 0.9% 1,000 ML IV PRN (07:25)
[2022-03-26] MEDS ORDERED: FUROSEMIDE 40 MG/4 ML VIAL IV PRN (07:26)
[2022-03-26] MEDS: MELOXICAM 7.5 MG TABLET PO SCH (08:26)
[2022-03-26] MEDS: LOSARTAN 50 MG TABLET PO SCH (08:26)
[2022-03-26] MEDS: PANTOPRAZOLE 40 MG TABLET PO SCH (08:26)
[2022-03-26] MEDS: FOLIC ACID 1 MG TABLET PO SCH ×2 (08:27→21:31)
[2022-03-26] MEDS: POLYETHYLENE GLYCOL POWDER 17 GM PACK PO SCH (08:27)
[2022-03-26] MEDS: DOCUSATE SODIUM 100 MG CAPSULE PO SCH ×2 (08:27→21:31)
[2022-03-26] MEDS: THIAMINE 100 MG TABLET PO SCH ×2 (08:27→21:31)
[2022-03-26] MEDS: FERROUS SULFATE 325 MG TABLET PO SCH (08:27)
[2022-03-26] MEDS: MULTIVITAMIN (CENTRUM) TABLET PO SCH (08:27)
[2022-03-26] MEDS: NICOTINE 21 MG/24 HR PATCH TRANSDERM SCH (08:28)
[2022-03-26] MEDS ORDERED: NON-FORMULARY MEDICATION (Omeprazole 40 mg capsule,delayed release(DR/EC)) PO SCH (09:00)
[2022-03-26] MEDS ORDERED: amLODIPine 10 MG TABLET PO SCH (09:00)
[2022-03-26] MEDS: IPRATROPIUM 500 MCG/2.5 ML NEB RESP TX SCH ×3 (10:26→19:30)
[2022-03-26 18:09] LABS: Hematocrit 33.2 VOL% (42.0-52.0); Hemoglobin 11.1 GM/DL (14.0-18.0)
[2022-03-26] MEDS: TAMSULOSIN 0.4 MG CAPSULE PO SCH (21:31)
[2022-03-26] MEDS: SIMVASTATIN 20 MG TABLET PO SCH (21:32)
[2022-03-26] MEDS: MORPHINE 2 MG/1 ML SYRINGE IV PRN (22:02)
[2022-03-27] MEDS: ceFAZolin 2,000 MG/50 ML DUPLEX IV SCH ×3 (05:07→21:19)
[2022-03-27 05:41] LABS: Basophils % 0.5 % (0.0-0.8); Eosinophils # 0.2 10*3/uL (0.0-0.87); Eosinophils % 1.8 % (0.00-10.9); Hematocrit 28.9 VOL% (42.0-52.0); Hemoglobin 9.6 GM/DL (14.0-18.0); Immature Granulocytes % 0.8 %; Immature Granulocytes Absolute 0.07 #; Lymphocytes # 1.5 10*3/uL (1.4-4.0); Mean Corpuscular HGB Conc 33.2 GM/DL (32-36); Mean Corpuscular Volume 91.5 FL (87-102); Mean Platelet Volume 9.3 FL (9.6-12.0); Monocytes # 0.8 10*3/uL (0.11-0.8); Monocytes % 8.9 % (1.7-12.7); Platelet Count 259 T/CUMM (130-400); Red Blood Count 3.16 MC/CUMM (3.8-5.5); Red Cell Distribution Width 13.4 % (9.3-17.3); White Blood Count 8.7 T/CUMM (4-12)
[2022-03-27 05:49] LABS: Osmolality,Calculated 272.8 MOS/KG (273-304)
[2022-03-27] MEDS: IPRATROPIUM 500 MCG/2.5 ML NEB RESP TX SCH ×4 (07:30→19:46)
[2022-03-27] MEDS ORDERED: amLODIPine 5 MG TABLET PO SCH (09:00)
[2022-03-27] MEDS: PANTOPRAZOLE 40 MG TABLET PO SCH (09:51)
[2022-03-27] MEDS: DOCUSATE SODIUM 100 MG CAPSULE PO SCH ×2 (09:51→21:17)
[2022-03-27] MEDS: LOSARTAN 50 MG TABLET PO SCH (09:51)
[2022-03-27] MEDS: THIAMINE 100 MG TABLET PO SCH ×2 (09:51→21:19)
[2022-03-27] MEDS: FOLIC ACID 1 MG TABLET PO SCH ×2 (09:51→21:17)
[2022-03-27] MEDS: GABAPENTIN 100 MG CAPSULE PO SCH ×2 (09:51→21:18)
[2022-03-27] MEDS: MULTIVITAMIN (CENTRUM) TABLET PO SCH (09:51)
[2022-03-27] MEDS: POLYETHYLENE GLYCOL POWDER 17 GM PACK PO SCH (09:52)
[2022-03-27] MEDS: MELOXICAM 7.5 MG TABLET PO SCH (09:52)
[2022-03-27] MEDS: ENOXAPARIN 40 MG/0.4 ML SYRINGE SUBCUT SCH (09:52)
[2022-03-27] MEDS: FERROUS SULFATE 325 MG TABLET PO SCH (09:56)
[2022-03-27] MEDS: NICOTINE 21 MG/24 HR PATCH TRANSDERM SCH (10:15)
[2022-03-27] MEDS: VANCOMYCIN INJ 1,000 MG in SODIUM CHLORIDE 0.9% 250 ML IV SCH (13:24)
[2022-03-27] MEDS: SIMVASTATIN 20 MG TABLET PO SCH (21:17)
[2022-03-27] MEDS: TAMSULOSIN 0.4 MG CAPSULE PO SCH (21:19)
[2022-03-28] MEDS: ceFAZolin 2,000 MG/50 ML DUPLEX IV SCH ×3 (05:45→21:08)
[2022-03-28 06:39] LABS: Basophils % 0.4 % (0.0-0.8); Eosinophils # 0.2 10*3/uL (0.0-0.87); Eosinophils % 1.6 % (0.00-10.9); Hematocrit 30.1 VOL% (42.0-52.0); Hemoglobin 9.6 GM/DL (14.0-18.0); Immature Granulocytes % 0.7 %; Immature Granulocytes Absolute 0.06 #; Lymphocytes # 1.4 10*3/uL (1.4-4.0); Lymphocytes % 15.6 % (21.2-54.2); Mean Corpuscular HGB Conc 31.9 GM/DL (32-36); Mean Corpuscular Volume 93.8 FL (87-102); Mean Platelet Volume 9.2 FL (9.6-12.0); Monocytes # 0.7 10*3/uL (0.11-0.8); Monocytes % 7.1 % (1.7-12.7); Neutrophils % 74.6 % (38.7-73.9); Platelet Count 279 T/CUMM (130-400); Red Blood Count 3.21 MC/CUMM (3.8-5.5); Red Cell Distribution Width 13.5 % (9.3-17.3); White Blood Count 9.2 T/CUMM (4-12)
[2022-03-28 06:56] LABS: Calcium 8.1 MG/DL (8.5-10.1); Osmolality,Calculated 270.1 MOS/KG (273-304); Potassium 4.1 MMOL/L (3.5-5.1)
[2022-03-28] MEDS: IPRATROPIUM 500 MCG/2.5 ML NEB RESP TX SCH ×4 (07:26→19:26)
[2022-03-28] MEDS ORDERED: FUROSEMIDE 20 MG/2 ML VIAL IV ONE (08:07)
[2022-03-28] MEDS: MELOXICAM 7.5 MG TABLET PO SCH (10:57)
[2022-03-28] MEDS: THIAMINE 100 MG TABLET PO SCH ×2 (10:57→21:04)
[2022-03-28] MEDS: MULTIVITAMIN (CENTRUM) TABLET PO SCH (10:57)
[2022-03-28] MEDS: amLODIPine 5 MG TABLET PO SCH (10:57)
[2022-03-28] MEDS: DOCUSATE SODIUM 100 MG CAPSULE PO SCH ×2 (10:57→21:04)
[2022-03-28] MEDS: ENOXAPARIN 40 MG/0.4 ML SYRINGE SUBCUT SCH (11:07)
[2022-03-28] MEDS: PANTOPRAZOLE 40 MG TABLET PO SCH (11:07)
[2022-03-28] MEDS: LOSARTAN 50 MG TABLET PO SCH (11:07)
[2022-03-28] MEDS: POLYETHYLENE GLYCOL POWDER 17 GM PACK PO SCH (11:08)
[2022-03-28] MEDS: FERROUS SULFATE 325 MG TABLET PO SCH (11:10)
[2022-03-28] MEDS: GABAPENTIN 100 MG CAPSULE PO SCH ×2 (11:10→21:04)
[2022-03-28] MEDS: FOLIC ACID 1 MG TABLET PO SCH ×2 (11:10→21:04)
[2022-03-28] MEDS: NICOTINE 21 MG/24 HR PATCH TRANSDERM SCH (11:11)
[2022-03-28] MEDS: VANCOMYCIN INJ 1,000 MG in SODIUM CHLORIDE 0.9% 250 ML IV SCH (13:40)
[2022-03-28] MEDS: SIMVASTATIN 20 MG TABLET PO SCH (21:04)
[2022-03-28] MEDS: TAMSULOSIN 0.4 MG CAPSULE PO SCH (21:04)
[2022-03-29] MEDS: ceFAZolin 2,000 MG/50 ML DUPLEX IV SCH ×3 (05:09→21:15)
[2022-03-29 05:32] LABS: Basophils % 0.5 % (0.0-0.8); Eosinophils # 0.2 10*3/uL (0.0-0.87); Eosinophils % 2.2 % (0.00-10.9); Hematocrit 28.4 VOL% (42.0-52.0); Hemoglobin 9.5 GM/DL (14.0-18.0); Immature Granulocytes % 0.5 %; Immature Granulocytes Absolute 0.04 #; Lymphocytes # 1.5 10*3/uL (1.4-4.0); Lymphocytes % 18.7 % (21.2-54.2); Mean Corpuscular HGB Conc 33.5 GM/DL (32-36); Mean Corpuscular Volume 93.1 FL (87-102); Monocytes # 0.7 10*3/uL (0.11-0.8); Monocytes % 9.2 % (1.7-12.7); Neutrophils % 68.9 % (38.7-73.9); Platelet Count 287 T/CUMM (130-400); Red Blood Count 3.05 MC/CUMM (3.8-5.5); Red Cell Distribution Width 13.7 % (9.3-17.3); White Blood Count 8.1 T/CUMM (4-12)
[2022-03-29 05:43] LABS: Calcium 8.1 MG/DL (8.5-10.1); Potassium 3.8 MMOL/L (3.5-5.1)
[2022-03-29] MEDS: IPRATROPIUM 500 MCG/2.5 ML NEB RESP TX SCH ×4 (08:15→19:22)
[2022-03-29] MEDS: MULTIVITAMIN (CENTRUM) TABLET PO SCH (08:46)
[2022-03-29] MEDS: DOCUSATE SODIUM 100 MG CAPSULE PO SCH ×2 (08:46→21:14)
[2022-03-29] MEDS: ENOXAPARIN 40 MG/0.4 ML SYRINGE SUBCUT SCH (08:46)
[2022-03-29] MEDS: PANTOPRAZOLE 40 MG TABLET PO SCH (08:47)
[2022-03-29] MEDS: LOSARTAN 50 MG TABLET PO SCH (08:47)
[2022-03-29] MEDS: FOLIC ACID 1 MG TABLET PO SCH ×2 (08:47→21:14)
[2022-03-29] MEDS: amLODIPine 5 MG TABLET PO SCH (08:48)
[2022-03-29] MEDS: FERROUS SULFATE 325 MG TABLET PO SCH (08:48)
[2022-03-29] MEDS: MELOXICAM 7.5 MG TABLET PO SCH (08:48)
[2022-03-29] MEDS: GABAPENTIN 100 MG CAPSULE PO SCH ×2 (08:48→21:14)
[2022-03-29] MEDS: NICOTINE 21 MG/24 HR PATCH TRANSDERM SCH (08:48)
[2022-03-29] MEDS: THIAMINE 100 MG TABLET PO SCH ×2 (08:48→21:14)
[2022-03-29] MEDS: POLYETHYLENE GLYCOL POWDER 17 GM PACK PO SCH (08:53)
[2022-03-29] MEDS: VANCOMYCIN INJ 1,000 MG in SODIUM CHLORIDE 0.9% 250 ML IV SCH (12:00)
[2022-03-29] MEDS: TAMSULOSIN 0.4 MG CAPSULE PO SCH (21:14)
[2022-03-29] MEDS: SIMVASTATIN 20 MG TABLET PO SCH (21:14)
[2022-03-30 06:30] LABS: Basophils # 0.1 10*3/uL (0.0-0.2); Basophils % 0.7 % (0.0-0.8); Eosinophils # 0.2 10*3/uL (0.0-0.87); Eosinophils % 2.2 % (0.00-10.9); Hematocrit 29.5 VOL% (42.0-52.0); Immature Granulocytes % 0.5 %; Immature Granulocytes Absolute 0.04 #; Lymphocytes # 1.3 10*3/uL (1.4-4.0); Lymphocytes % 16.7 % (21.2-54.2); Mean Corpuscular HGB Conc 33.9 GM/DL (32-36); Mean Corpuscular Volume 93.4 FL (87-102); Monocytes # 0.6 10*3/uL (0.11-0.8); Neutrophils % 71.9 % (38.7-73.9); Platelet Count 303 T/CUMM (130-400); Red Blood Count 3.16 MC/CUMM (3.8-5.5); Red Cell Distribution Width 13.5 % (9.3-17.3); White Blood Count 7.7 T/CUMM (4-12)
[2022-03-30 06:36] LABS: Calcium 8.2 MG/DL (8.5-10.1); Potassium 3.8 MMOL/L (3.5-5.1)
[2022-03-30] MEDS: IPRATROPIUM 500 MCG/2.5 ML NEB RESP TX SCH ×4 (07:56→19:47)
[2022-03-30] MEDS: LOSARTAN 50 MG TABLET PO SCH (08:44)
[2022-03-30] MEDS: DOCUSATE SODIUM 100 MG CAPSULE PO SCH ×2 (08:44→20:32)
[2022-03-30] MEDS: GABAPENTIN 100 MG CAPSULE PO SCH ×2 (08:44→20:32)
[2022-03-30] MEDS: MELOXICAM 7.5 MG TABLET PO SCH (08:44)
[2022-03-30] MEDS: THIAMINE 100 MG TABLET PO SCH ×2 (08:44→20:32)
[2022-03-30] MEDS: FOLIC ACID 1 MG TABLET PO SCH ×2 (08:44→20:33)
[2022-03-30] MEDS: amLODIPine 5 MG TABLET PO SCH (08:44)
[2022-03-30] MEDS: ENOXAPARIN 40 MG/0.4 ML SYRINGE SUBCUT SCH (08:44)
[2022-03-30] MEDS: MULTIVITAMIN (CENTRUM) TABLET PO SCH (08:44)
[2022-03-30] MEDS: PANTOPRAZOLE 40 MG TABLET PO SCH (08:45)
[2022-03-30] MEDS: FERROUS SULFATE 325 MG TABLET PO SCH (08:45)
[2022-03-30] MEDS: ceFAZolin 2,000 MG/50 ML DUPLEX IV SCH ×3 (08:48→23:15)
[2022-03-30] MEDS: POLYETHYLENE GLYCOL POWDER 17 GM PACK PO SCH (08:48)
[2022-03-30] MEDS: NICOTINE 21 MG/24 HR PATCH TRANSDERM SCH (08:48)
[2022-03-30] MEDS: TAMSULOSIN 0.4 MG CAPSULE PO SCH (20:33)
[2022-03-30] MEDS: SIMVASTATIN 20 MG TABLET PO SCH (20:33)
[2022-03-31] MEDS: ALBUTEROL 2.5 MG/3 ML NEB RESP TX PRN (03:25)
[2022-03-31 06:04] LABS: Basophils % 0.4 % (0.0-0.8); Eosinophils # 0.3 10*3/uL (0.0-0.87); Eosinophils % 2.4 % (0.00-10.9); Hematocrit 33.6 VOL% (42.0-52.0); Hemoglobin 10.8 GM/DL (14.0-18.0); Immature Granulocytes % 0.7 %; Immature Granulocytes Absolute 0.07 #; Lymphocytes # 1.3 10*3/uL (1.4-4.0); Mean Corpuscular HGB Conc 32.1 GM/DL (32-36); Mean Corpuscular Volume 94.6 FL (87-102); Mean Platelet Volume 9.1 FL (9.6-12.0); Monocytes # 0.7 10*3/uL (0.11-0.8); Neutrophils % 77.5 % (38.7-73.9); Platelet Count 383 T/CUMM (130-400); Red Blood Count 3.55 MC/CUMM (3.8-5.5); Red Cell Distribution Width 13.7 % (9.3-17.3); White Blood Count 10.6 T/CUMM (4-12)
[2022-03-31 06:18] LABS: Calcium 9.2 MG/DL (8.5-10.1); Potassium 4.8 MMOL/L (3.5-5.1)
[2022-03-31] MEDS: IPRATROPIUM 500 MCG/2.5 ML NEB RESP TX SCH ×4 (07:20→19:32)
[2022-03-31] MEDS: FERROUS SULFATE 325 MG TABLET PO SCH (08:47)
[2022-03-31] MEDS: LOSARTAN 50 MG TABLET PO SCH (08:47)
[2022-03-31] MEDS: amLODIPine 5 MG TABLET PO SCH (08:48)
[2022-03-31] MEDS: DOCUSATE SODIUM 100 MG CAPSULE PO SCH ×2 (08:48→20:22)
[2022-03-31] MEDS: PANTOPRAZOLE 40 MG TABLET PO SCH (08:48)
[2022-03-31] MEDS: FOLIC ACID 1 MG TABLET PO SCH ×2 (08:48→20:22)
[2022-03-31] MEDS: MELOXICAM 7.5 MG TABLET PO SCH (08:48)
[2022-03-31] MEDS: GABAPENTIN 100 MG CAPSULE PO SCH ×2 (08:48→20:22)
[2022-03-31] MEDS: THIAMINE 100 MG TABLET PO SCH ×2 (08:48→20:22)
[2022-03-31] MEDS: NICOTINE 21 MG/24 HR PATCH TRANSDERM SCH (08:48)
[2022-03-31] MEDS: ceFAZolin 2,000 MG/50 ML DUPLEX IV SCH ×2 (08:49→17:09)
[2022-03-31] MEDS: ENOXAPARIN 40 MG/0.4 ML SYRINGE SUBCUT SCH (08:49)
[2022-03-31] MEDS: POLYETHYLENE GLYCOL POWDER 17 GM PACK PO SCH (08:49)
[2022-03-31] MEDS: MULTIVITAMIN (CENTRUM) TABLET PO SCH (08:56)
[2022-03-31] MEDS: SIMVASTATIN 20 MG TABLET PO SCH (20:22)
[2022-03-31] MEDS: TAMSULOSIN 0.4 MG CAPSULE PO SCH (20:22)
[2022-04-01] MEDS: ceFAZolin 2,000 MG/50 ML DUPLEX IV SCH ×4 (00:15→23:47)
[2022-04-01 06:32] LABS: Basophils % 0.4 % (0.0-0.8); Eosinophils # 0.2 10*3/uL (0.0-0.87); Eosinophils % 1.8 % (0.00-10.9); Hematocrit 30.5 VOL% (42.0-52.0); Immature Granulocytes % 0.6 %; Immature Granulocytes Absolute 0.06 #; Lymphocytes # 1.6 10*3/uL (1.4-4.0); Lymphocytes % 16.7 % (21.2-54.2); Mean Corpuscular HGB Conc 32.8 GM/DL (32-36); Mean Corpuscular Volume 93.3 FL (87-102); Mean Platelet Volume 9.2 FL (9.6-12.0); Monocytes # 0.7 10*3/uL (0.11-0.8); Monocytes % 7.7 % (1.7-12.7); Neutrophils % 72.8 % (38.7-73.9); Platelet Count 361 T/CUMM (130-400); Red Blood Count 3.27 MC/CUMM (3.8-5.5); Red Cell Distribution Width 13.8 % (9.3-17.3); White Blood Count 9.3 T/CUMM (4-12)
[2022-04-01 06:46] LABS: Osmolality,Calculated 270.1 MOS/KG (273-304); Potassium 4.1 MMOL/L (3.5-5.1)
[2022-04-01] MEDS: IPRATROPIUM 500 MCG/2.5 ML NEB RESP TX SCH ×4 (07:45→19:25)
[2022-04-01] MEDS: NICOTINE 21 MG/24 HR PATCH TRANSDERM SCH (09:45)
[2022-04-01] MEDS: LOSARTAN 50 MG TABLET PO SCH (09:46)
[2022-04-01] MEDS: MELOXICAM 7.5 MG TABLET PO SCH (09:46)
[2022-04-01] MEDS: amLODIPine 5 MG TABLET PO SCH (09:46)
[2022-04-01] MEDS: FOLIC ACID 1 MG TABLET PO SCH ×2 (09:47→20:55)
[2022-04-01] MEDS: THIAMINE 100 MG TABLET PO SCH ×2 (09:47→20:55)
[2022-04-01] MEDS: FERROUS SULFATE 325 MG TABLET PO SCH (09:47)
[2022-04-01] MEDS: PANTOPRAZOLE 40 MG TABLET PO SCH (09:47)
[2022-04-01] MEDS: MULTIVITAMIN (CENTRUM) TABLET PO SCH (09:47)
[2022-04-01] MEDS: GABAPENTIN 100 MG CAPSULE PO SCH ×2 (09:47→20:55)
[2022-04-01] MEDS: DOCUSATE SODIUM 100 MG CAPSULE PO SCH ×2 (09:48→20:55)
[2022-04-01] MEDS: ENOXAPARIN 40 MG/0.4 ML SYRINGE SUBCUT SCH (09:50)
[2022-04-01] MEDS: POLYETHYLENE GLYCOL POWDER 17 GM PACK PO SCH (09:52)
[2022-04-01] MEDS: TAMSULOSIN 0.4 MG CAPSULE PO SCH (20:55)
[2022-04-01] MEDS: SIMVASTATIN 20 MG TABLET PO SCH (20:55)
[2022-04-01] MEDS: ZALEPLON 5 MG CAPSULE PO PRN (23:52)
[2022-04-02 06:19] LABS: Basophils # 0.1 10*3/uL (0.0-0.2); Basophils % 0.6 % (0.0-0.8); Eosinophils # 0.2 10*3/uL (0.0-0.87); Eosinophils % 2.4 % (0.00-10.9); Hematocrit 30.4 VOL% (42.0-52.0); Hemoglobin 9.6 GM/DL (14.0-18.0); Immature Granulocytes % 0.6 %; Immature Granulocytes Absolute 0.06 #; Lymphocytes # 1.9 10*3/uL (1.4-4.0); Lymphocytes % 19.3 % (21.2-54.2); Mean Corpuscular HGB Conc 31.6 GM/DL (32-36); Mean Corpuscular Volume 97.1 FL (87-102); Monocytes # 0.7 10*3/uL (0.11-0.8); Monocytes % 7.2 % (1.7-12.7); Neutrophils % 69.9 % (38.7-73.9); Platelet Count 358 T/CUMM (130-400); Red Blood Count 3.13 MC/CUMM (3.8-5.5); Red Cell Distribution Width 13.9 % (9.3-17.3); White Blood Count 9.6 T/CUMM (4-12)
[2022-04-02 06:33] LABS: Calcium 8.6 MG/DL (8.5-10.1); Osmolality,Calculated 268.2 MOS/KG (273-304); Potassium 4.1 MMOL/L (3.5-5.1)
[2022-04-02 06:48] LABS: Eosinophils 6 % (0-10); Hypochromia Slight; Lymphocytes 16 % (20-55); Microcytosis Slight; Platelet Estimate Adequate; Total Cells Counted 100
[2022-04-02] MEDS: IPRATROPIUM 500 MCG/2.5 ML NEB RESP TX SCH ×4 (07:13→19:52)
[2022-04-02] MEDS: ceFAZolin 2,000 MG/50 ML DUPLEX IV SCH ×3 (08:53→23:14)
[2022-04-02] MEDS: LOSARTAN 50 MG TABLET PO SCH (08:55)
[2022-04-02] MEDS: MULTIVITAMIN (CENTRUM) TABLET PO SCH (08:55)
[2022-04-02] MEDS: DOCUSATE SODIUM 100 MG CAPSULE PO SCH ×2 (08:55→20:58)
[2022-04-02] MEDS: FERROUS SULFATE 325 MG TABLET PO SCH (08:55)
[2022-04-02] MEDS: GABAPENTIN 100 MG CAPSULE PO SCH ×2 (08:56→20:33)
[2022-04-02] MEDS: FOLIC ACID 1 MG TABLET PO SCH ×2 (08:56→20:35)
[2022-04-02] MEDS: ENOXAPARIN 40 MG/0.4 ML SYRINGE SUBCUT SCH (08:56)
[2022-04-02] MEDS: POLYETHYLENE GLYCOL POWDER 17 GM PACK PO SCH (08:56)
[2022-04-02] MEDS: MELOXICAM 7.5 MG TABLET PO SCH (08:56)
[2022-04-02] MEDS: NICOTINE 21 MG/24 HR PATCH TRANSDERM SCH (08:56)
[2022-04-02] MEDS: THIAMINE 100 MG TABLET PO SCH ×2 (08:57→20:34)
[2022-04-02] MEDS: PANTOPRAZOLE 40 MG TABLET PO SCH (08:57)
[2022-04-02] MEDS: amLODIPine 5 MG TABLET PO SCH (08:57)
[2022-04-02] MEDS: SIMVASTATIN 20 MG TABLET PO SCH (20:35)
[2022-04-02] MEDS: TAMSULOSIN 0.4 MG CAPSULE PO SCH (20:58)
[2022-04-02] MEDS: ZALEPLON 5 MG CAPSULE PO PRN (23:09)
[2022-04-03 05:12] LABS: Basophils # 0.1 10*3/uL (0.0-0.2); Basophils % 0.6 % (0.0-0.8); Eosinophils # 0.2 10*3/uL (0.0-0.87); Eosinophils % 2.6 % (0.00-10.9); Hematocrit 27.7 VOL% (42.0-52.0); Immature Granulocytes % 0.6 %; Immature Granulocytes Absolute 0.05 #; Lymphocytes # 1.8 10*3/uL (1.4-4.0); Lymphocytes % 21.1 % (21.2-54.2); Mean Corpuscular HGB Conc 32.5 GM/DL (32-36); Monocytes # 0.6 10*3/uL (0.11-0.8); Monocytes % 7.5 % (1.7-12.7); Neutrophils % 67.6 % (38.7-73.9); Platelet Count 360 T/CUMM (130-400); Red Blood Count 2.98 MC/CUMM (3.8-5.5); Red Cell Distribution Width 13.8 % (9.3-17.3); White Blood Count 8.3 T/CUMM (4-12)
[2022-04-03 05:31] LABS: Calcium 8.5 MG/DL (8.5-10.1); Osmolality,Calculated 270.1 MOS/KG (273-304); Potassium 3.9 MMOL/L (3.5-5.1)
[2022-04-03] MEDS: IPRATROPIUM 500 MCG/2.5 ML NEB RESP TX SCH ×4 (06:58→19:16)
[2022-04-03] MEDS: GABAPENTIN 100 MG CAPSULE PO SCH ×2 (08:52→21:37)
[2022-04-03] MEDS: amLODIPine 5 MG TABLET PO SCH (08:52)
[2022-04-03] MEDS: THIAMINE 100 MG TABLET PO SCH ×2 (08:52→21:36)
[2022-04-03] MEDS: FOLIC ACID 1 MG TABLET PO SCH ×2 (08:53→21:37)
[2022-04-03] MEDS: MELOXICAM 7.5 MG TABLET PO SCH (08:53)
[2022-04-03] MEDS: PANTOPRAZOLE 40 MG TABLET PO SCH (08:53)
[2022-04-03] MEDS: MULTIVITAMIN (CENTRUM) TABLET PO SCH (08:53)
[2022-04-03] MEDS: FERROUS SULFATE 325 MG TABLET PO SCH (08:53)
[2022-04-03] MEDS: ENOXAPARIN 40 MG/0.4 ML SYRINGE SUBCUT SCH (08:54)
[2022-04-03] MEDS: POLYETHYLENE GLYCOL POWDER 17 GM PACK PO SCH (09:14)
[2022-04-03] MEDS: LOSARTAN 50 MG TABLET PO SCH (09:14)
[2022-04-03] MEDS: NICOTINE 21 MG/24 HR PATCH TRANSDERM SCH (09:14)
[2022-04-03] MEDS: DOCUSATE SODIUM 100 MG CAPSULE PO SCH ×2 (09:14→21:35)
[2022-04-03] MEDS: ceFAZolin 2,000 MG/50 ML DUPLEX IV SCH ×3 (09:15→23:36)
[2022-04-03] MEDS: SIMVASTATIN 20 MG TABLET PO SCH (21:36)
[2022-04-03] MEDS: TAMSULOSIN 0.4 MG CAPSULE PO SCH (21:36)
[2022-04-04 05:19] LABS: Basophils # 0.1 10*3/uL (0.0-0.2); Basophils % 0.6 % (0.0-0.8); Eosinophils # 0.2 10*3/uL (0.0-0.87); Eosinophils % 2.6 % (0.00-10.9); Hematocrit 27.7 VOL% (42.0-52.0); Hemoglobin 8.7 GM/DL (14.0-18.0); Immature Granulocytes % 0.7 %; Immature Granulocytes Absolute 0.06 #; Lymphocytes # 1.8 10*3/uL (1.4-4.0); Lymphocytes % 20.5 % (21.2-54.2); Mean Corpuscular HGB Conc 31.4 GM/DL (32-36); Mean Corpuscular Volume 96.5 FL (87-102); Mean Platelet Volume 8.9 FL (9.6-12.0); Monocytes # 0.8 10*3/uL (0.11-0.8); Monocytes % 9.1 % (1.7-12.7); Neutrophils % 66.5 % (38.7-73.9); Platelet Count 405 T/CUMM (130-400); Red Blood Count 2.87 MC/CUMM (3.8-5.5); Red Cell Distribution Width 14.1 % (9.3-17.3); White Blood Count 8.5 T/CUMM (4-12)
[2022-04-04 06:32] LABS: Band Neutrophils 1 % (0-10); Eosinophils 1 % (0-10); Lymphocytes 21 % (20-55); Total Cells Counted 100
[2022-04-04 06:33] LABS: Anisocytosis 1+; Macrocytosis Slight; Platelet Estimate Normal; Target Cells Few
[2022-04-04] MEDS: IPRATROPIUM 500 MCG/2.5 ML NEB RESP TX SCH ×4 (07:00→19:31)
[2022-04-04] MEDS: NICOTINE 21 MG/24 HR PATCH TRANSDERM SCH (08:51)
[2022-04-04] MEDS: ceFAZolin 2,000 MG/50 ML DUPLEX IV SCH ×2 (08:51→16:01)
[2022-04-04] MEDS: DOCUSATE SODIUM 100 MG CAPSULE PO SCH ×2 (08:52→22:02)
[2022-04-04] MEDS: FERROUS SULFATE 325 MG TABLET PO SCH (08:53)
[2022-04-04] MEDS: MELOXICAM 7.5 MG TABLET PO SCH (08:53)
[2022-04-04] MEDS: THIAMINE 100 MG TABLET PO SCH ×2 (08:53→22:03)
[2022-04-04] MEDS: LOSARTAN 50 MG TABLET PO SCH (08:53)
[2022-04-04] MEDS: MULTIVITAMIN (CENTRUM) TABLET PO SCH (08:53)
[2022-04-04] MEDS: FOLIC ACID 1 MG TABLET PO SCH ×2 (08:54→22:03)
[2022-04-04] MEDS: ENOXAPARIN 40 MG/0.4 ML SYRINGE SUBCUT SCH (08:54)
[2022-04-04] MEDS: GABAPENTIN 100 MG CAPSULE PO SCH ×2 (08:54→22:03)
[2022-04-04] MEDS: amLODIPine 5 MG TABLET PO SCH (08:54)
[2022-04-04] MEDS: PANTOPRAZOLE 40 MG TABLET PO SCH (08:54)
[2022-04-04] MEDS: POLYETHYLENE GLYCOL POWDER 17 GM PACK PO SCH (08:55)
[2022-04-04] MEDS: ALBUTEROL 2.5 MG/3 ML NEB RESP TX PRN ×2 (09:00→19:31)
[2022-04-04] MEDS: TAMSULOSIN 0.4 MG CAPSULE PO SCH (22:03)
[2022-04-04] MEDS: SIMVASTATIN 20 MG TABLET PO SCH (22:03)
[2022-04-05] MEDS: ceFAZolin 2,000 MG/50 ML DUPLEX IV SCH ×3 (00:03→15:47)
[2022-04-05 06:18] LABS: Calcium 8.7 MG/DL (8.5-10.1); Osmolality,Calculated 267.2 MOS/KG (273-304); Potassium 4.6 MMOL/L (3.5-5.1)
[2022-04-05 06:55] LABS: Basophils # 0.1 10*3/uL (0.0-0.2); Basophils % 0.7 % (0.0-0.8); Eosinophils # 0.3 10*3/uL (0.0-0.87); Hematocrit 29.1 VOL% (42.0-52.0); Hemoglobin 9.2 GM/DL (14.0-18.0); Immature Granulocytes % 0.6 %; Immature Granulocytes Absolute 0.05 #; Lymphocytes # 1.6 10*3/uL (1.4-4.0); Lymphocytes % 19.8 % (21.2-54.2); Mean Corpuscular HGB Conc 31.6 GM/DL (32-36); Mean Corpuscular Volume 95.7 FL (87-102); Mean Platelet Volume 8.8 FL (9.6-12.0); Monocytes # 0.8 10*3/uL (0.11-0.8); Monocytes % 9.6 % (1.7-12.7); Neutrophils % 66.3 % (38.7-73.9); Platelet Count 447 T/CUMM (130-400); Red Blood Count 3.04 MC/CUMM (3.8-5.5); Red Cell Distribution Width 14.1 % (9.3-17.3); White Blood Count 8.3 T/CUMM (4-12)
[2022-04-05] MEDS: IPRATROPIUM 500 MCG/2.5 ML NEB RESP TX SCH ×4 (07:11→19:40)
[2022-04-05] MEDS: THIAMINE 100 MG TABLET PO SCH ×2 (08:56→20:56)
[2022-04-05] MEDS: DOCUSATE SODIUM 100 MG CAPSULE PO SCH ×2 (08:56→20:56)
[2022-04-05] MEDS: LOSARTAN 50 MG TABLET PO SCH (08:56)
[2022-04-05] MEDS: PANTOPRAZOLE 40 MG TABLET PO SCH (08:56)
[2022-04-05] MEDS: amLODIPine 5 MG TABLET PO SCH (08:56)
[2022-04-05] MEDS: MELOXICAM 7.5 MG TABLET PO SCH (08:56)
[2022-04-05] MEDS: MULTIVITAMIN (CENTRUM) TABLET PO SCH (08:56)
[2022-04-05] MEDS: FOLIC ACID 1 MG TABLET PO SCH ×2 (08:56→20:56)
[2022-04-05] MEDS: FERROUS SULFATE 325 MG TABLET PO SCH (08:56)
[2022-04-05] MEDS: GABAPENTIN 100 MG CAPSULE PO SCH ×2 (08:56→20:57)
[2022-04-05] MEDS: ENOXAPARIN 40 MG/0.4 ML SYRINGE SUBCUT SCH (08:57)
[2022-04-05] MEDS: NICOTINE 21 MG/24 HR PATCH TRANSDERM SCH (08:57)
[2022-04-05] MEDS: POLYETHYLENE GLYCOL POWDER 17 GM PACK PO SCH (09:21)
[2022-04-05] MEDS: SIMVASTATIN 20 MG TABLET PO SCH (20:56)
[2022-04-05] MEDS: TAMSULOSIN 0.4 MG CAPSULE PO SCH (20:57)
[2022-04-06] MEDS: ceFAZolin 2,000 MG/50 ML DUPLEX IV SCH ×2 (00:51→09:08)
[2022-04-06 05:01] LABS: Basophils # 0.1 10*3/uL (0.0-0.2); Basophils % 0.8 % (0.0-0.8); Eosinophils # 0.3 10*3/uL (0.0-0.87); Hematocrit 28.1 VOL% (42.0-52.0); Hemoglobin 9.1 GM/DL (14.0-18.0); Immature Granulocytes % 0.5 %; Immature Granulocytes Absolute 0.05 #; Lymphocytes # 1.8 10*3/uL (1.4-4.0); Mean Corpuscular HGB Conc 32.4 GM/DL (32-36); Mean Corpuscular Volume 93.7 FL (87-102); Mean Platelet Volume 8.7 FL (9.6-12.0); Monocytes % 10.4 % (1.7-12.7); Neutrophils % 66.3 % (38.7-73.9); Platelet Count 452 T/CUMM (130-400); Red Cell Distribution Width 13.9 % (9.3-17.3); White Blood Count 9.5 T/CUMM (4-12)
[2022-04-06 05:31] LABS: Osmolality,Calculated 268.1 MOS/KG (273-304)
[2022-04-06] MEDS: IPRATROPIUM 500 MCG/2.5 ML NEB RESP TX SCH ×2 (07:20→13:09)
[2022-04-06] MEDS ORDERED: MAGNESIUM SULF RIDER 4 GM/100 ML PREMIX IV ONE (08:21)
[2022-04-06] MEDS: MELOXICAM 7.5 MG TABLET PO SCH (09:01)
[2022-04-06] MEDS: FERROUS SULFATE 325 MG TABLET PO SCH (09:01)
[2022-04-06] MEDS: DOCUSATE SODIUM 100 MG CAPSULE PO SCH (09:01)
[2022-04-06] MEDS: amLODIPine 5 MG TABLET PO SCH (09:01)
[2022-04-06] MEDS: PANTOPRAZOLE 40 MG TABLET PO SCH (09:01)
[2022-04-06] MEDS: NICOTINE 21 MG/24 HR PATCH TRANSDERM SCH (09:01)
[2022-04-06] MEDS: FOLIC ACID 1 MG TABLET PO SCH (09:01)
[2022-04-06] MEDS: MULTIVITAMIN (CENTRUM) TABLET PO SCH (09:02)
[2022-04-06] MEDS: LOSARTAN 50 MG TABLET PO SCH (09:02)
[2022-04-06] MEDS: THIAMINE 100 MG TABLET PO SCH (09:02)
[2022-04-06] MEDS: GABAPENTIN 100 MG CAPSULE PO SCH (09:03)
[2022-04-06] MEDS: ENOXAPARIN 40 MG/0.4 ML SYRINGE SUBCUT SCH (09:03)
[2022-04-06] MEDS: POLYETHYLENE GLYCOL POWDER 17 GM PACK PO SCH (09:08)
[2022-04-06 11:21] VITALS: BP 139/69
== END 2022-04-06 14:34 | disposition swing bed (61) | DRG 982 ==
LOC: N.ED 13:47 → SUATTDRO 20:01 → N.EDINP 20:01 → N.3E 21:53
PROVIDERS: ADMIT Emergency Medicine; ATTEND Hospitalist

== ENCOUNTER 2022-05-20 14:18 | Inpatient (IN) ==
[2022-05-20] MEDS ORDERED: VANCOMYCIN INJ 1,000 MG in SODIUM CHLORIDE 0.9% 250 ML IV STA ×2 (15:14→15:15)
[2022-05-20] MEDS ORDERED: HYDROmorphone 1 MG/1 ML SYRINGE IV STA (15:21)
[2022-05-20] MEDS ORDERED: ONDANSETRON 4 MG/2 ML VIAL IV STA (15:21)
[2022-05-20 16:39] LABS: Basophils % 0.3 % (0.0-0.8); Eosinophils # 0.3 10*3/uL (0.0-0.87); Eosinophils % 1.8 % (0.00-10.9); Hematocrit 26.9 VOL% (42.0-52.0); Hemoglobin 8.6 GM/DL (14.0-18.0); Immature Granulocytes % 0.6 %; Immature Granulocytes Absolute 0.09 #; Lymphocytes # 2.9 10*3/uL (1.4-4.0); Lymphocytes % 20.6 % (21.2-54.2); Mean Corpuscular Volume 90.3 FL (87-102); Mean Platelet Volume 10.1 FL (9.6-12.0); Monocytes # 0.8 10*3/uL (0.11-0.8); Monocytes % 5.6 % (1.7-12.7); Neutrophils % 71.1 % (38.7-73.9); Platelet Count 331 T/CUMM (130-400); Red Blood Count 2.98 MC/CUMM (3.8-5.5); Red Cell Distribution Width 14.8 % (9.3-17.3)
[2022-05-20] MEDS ORDERED: GLUCAGON 1 MG VIAL IM PRN (17:01)
[2022-05-20] MEDS ORDERED: ONDANSETRON 4 MG/2 ML VIAL IV PRN (17:01)
[2022-05-20] MEDS ORDERED: DEXTROSE 10% 250 ML BAG IV PRN (17:22)
[2022-05-20 17:47] LABS: Glucose,Urine (UA) Negative (Negative); Ketones,Urine Negative (Negative); Nitrite,Urine Negative (Negative); Protein,Urine Trace mg/dL (Negative); Urine Appearance Clear (Clear); Urine Color Yellow (Yellow); Urine Specific Gravity 1.025 (1.001-1.035); Urine pH 5.5 (4.5-8.0)
[2022-05-20 17:48] LABS: Bacteria,Urine Occasional /HPF (Few); Bilirubin,Urine Negative (Negative); Blood, Urine Negative (Negative); Mucus,Urine Occasional /LPF (Occasional); RBC,Urine 1 /HPF (0-4); Squamous Epithelial Cell,Urine Occasional /HPF (0-10); Urine Urobilinogen 0.2 eU/dL (<2.0)
[2022-05-20 17:53] LABS: Sedimentation Rate-Westergren 93 MM/HR (0-20)
[2022-05-20] MEDS ORDERED: ALBUTEROL 2.5 MG/3 ML NEB RESP TX PRN (18:52)
[2022-05-20] MEDS ORDERED: POTASSIUM CHLORIDE 20 MEQ TABLET PO ONE (19:05)
[2022-05-20] MEDS: NICOTINE 21 MG/24 HR PATCH TRANSDERM SCH (20:44)
[2022-05-20] MEDS: GABAPENTIN 100 MG CAPSULE PO SCH (20:44)
[2022-05-20] MEDS: TAMSULOSIN 0.4 MG CAPSULE PO SCH (20:44)
[2022-05-20] MEDS: HYDROmorphone 1 MG/1 ML SYRINGE IV PRN (20:44)
[2022-05-20] MEDS: PRAMIPEXOLE 0.25 MG TABLET PO SCH (20:44)
[2022-05-20] MEDS ORDERED: INSULIN REGULAR 100 UNIT/ML SUBCUT SCH (21:00)
[2022-05-21] MEDS: HYDROmorphone 1 MG/1 ML SYRINGE IV PRN ×5 (01:44→23:15)
[2022-05-21 05:56] LABS: Basophils % 0.3 % (0.0-0.8); Eosinophils # 0.4 10*3/uL (0.0-0.87); Eosinophils % 3.3 % (0.00-10.9); Hematocrit 25.8 VOL% (42.0-52.0); Immature Granulocytes % 0.5 %; Immature Granulocytes Absolute 0.05 #; Lymphocytes # 2.6 10*3/uL (1.4-4.0); Lymphocytes % 23.4 % (21.2-54.2); Mean Corpuscular Volume 91.8 FL (87-102); Mean Platelet Volume 9.6 FL (9.6-12.0); Monocytes # 0.9 10*3/uL (0.11-0.8); Neutrophils % 64.5 % (38.7-73.9); Platelet Count 283 T/CUMM (130-400); Red Blood Count 2.81 MC/CUMM (3.8-5.5); Red Cell Distribution Width 14.7 % (9.3-17.3); White Blood Count 11.05 T/CUMM (4-12)
[2022-05-21 06:27] LABS: Alanine Aminotransferase 10 U/L (16-61); Albumin 2.8 G/DL (3.4-5.0); Alkaline Phosphatase 79 U/L (45-117); Aspartate Amino Transferase 9 U/L (0-37); Bilirubin,Total < 0.39 MG/DL (0.20-1.00); Blood Urea Nitrogen 19 MG/DL (7-18); Calcium 8.9 MG/DL (8.5-10.1); Carbon Dioxide 21 MMOL/L (21-32); Chloride 111 MMOL/L (98-107); Glucose 92 MG/DL (74-106); Osmolality,Calculated 280.4 MOS/KG (273-304); Potassium 4.5 MMOL/L (3.5-5.1); Sodium 140 MMOL/L (136-145); Total Protein 6.6 G/DL (6.4-8.2)
[2022-05-21] MEDS ORDERED: MAGNESIUM SULF RIDER 2 GM/50 ML PREMIX IV ONE (08:03)
[2022-05-21] MEDS ORDERED: LACTATED RINGERS 1,000 ML IV SCH (08:30)
[2022-05-21] MEDS ORDERED: LOSARTAN 50 MG TABLET PO SCH (09:00)
[2022-05-21] MEDS ORDERED: DICLOFENAC SODIUM 75 MG TABLET PO SCH (09:00)
[2022-05-21] MEDS: CETIRIZINE 10 MG TABLET PO SCH (09:10)
[2022-05-21] MEDS: PANTOPRAZOLE 40 MG TABLET PO SCH (09:10)
[2022-05-21] MEDS: GABAPENTIN 100 MG CAPSULE PO SCH ×2 (09:10→20:05)
[2022-05-21] MEDS: SIMVASTATIN 10 MG TABLET PO SCH (09:10)
[2022-05-21] MEDS: amLODIPine 10 MG TABLET PO SCH (09:11)
[2022-05-21] MEDS: IPRATROPIUM 500 MCG/2.5 ML NEB RESP TX SCH ×4 (09:47→18:53)
[2022-05-21 14:02] LABS: Cholesterol Crystals None Seen /LPF
[2022-05-21 14:29] LABS: Lymphocytes,Synovial Fluid 3 %; Neutrophils,Synovial Fluid 96 %
[2022-05-21] MEDS: VANCOMYCIN INJ 1,000 MG in SODIUM CHLORIDE 0.9% 250 ML IV SCH (15:48)
[2022-05-21] MEDS: PRAMIPEXOLE 0.25 MG TABLET PO SCH (20:05)
[2022-05-21] MEDS: NICOTINE 21 MG/24 HR PATCH TRANSDERM SCH (20:05)
[2022-05-21] MEDS: TAMSULOSIN 0.4 MG CAPSULE PO SCH (20:05)
[2022-05-22] MEDS: VANCOMYCIN INJ 1,000 MG in SODIUM CHLORIDE 0.9% 250 ML IV SCH ×2 (02:00→14:55)
[2022-05-22 06:00] LABS: Basophils % 0.3 % (0.0-0.8); Eosinophils # 0.4 10*3/uL (0.0-0.87); Eosinophils % 3.5 % (0.00-10.9); Hematocrit 27.3 VOL% (42.0-52.0); Hemoglobin 8.6 GM/DL (14.0-18.0); Immature Granulocytes % 0.5 %; Immature Granulocytes Absolute 0.06 #; Lymphocytes % 17.8 % (21.2-54.2); Mean Corpuscular HGB Conc 31.5 GM/DL (32-36); Mean Corpuscular Volume 91.3 FL (87-102); Mean Platelet Volume 9.7 FL (9.6-12.0); Monocytes # 0.8 10*3/uL (0.11-0.8); Monocytes % 6.9 % (1.7-12.7); Platelet Count 306 T/CUMM (130-400); Red Blood Count 2.99 MC/CUMM (3.8-5.5); Red Cell Distribution Width 14.7 % (9.3-17.3); White Blood Count 11.13 T/CUMM (4-12)
[2022-05-22 06:02] LABS: Osmolality,Calculated 275.7 MOS/KG (273-304); Potassium 4.3 MMOL/L (3.5-5.1)
[2022-05-22 06:08] LABS: % Iron Saturation 15.4 % (18-50); Ferritin 45.2 ng/mL (26-388)
[2022-05-22 06:10] LABS: Folate 22.99 NG/ML (5.38-24.0)
[2022-05-22 07:09] LABS: Sedimentation Rate-Westergren 96 MM/HR (0-20)
[2022-05-22] MEDS: IPRATROPIUM 500 MCG/2.5 ML NEB RESP TX SCH ×4 (07:20→18:51)
[2022-05-22] MEDS: HYDROmorphone 1 MG/1 ML SYRINGE IV PRN ×3 (08:54→20:22)
[2022-05-22] MEDS: CETIRIZINE 10 MG TABLET PO SCH (09:05)
[2022-05-22] MEDS: SIMVASTATIN 10 MG TABLET PO SCH (09:05)
[2022-05-22] MEDS: amLODIPine 10 MG TABLET PO SCH (09:05)
[2022-05-22] MEDS: PANTOPRAZOLE 40 MG TABLET PO SCH (09:05)
[2022-05-22] MEDS: GABAPENTIN 100 MG CAPSULE PO SCH ×2 (09:05→20:22)
[2022-05-22] MEDS ORDERED: MAGNESIUM SULF RIDER 2 GM/50 ML PREMIX IV PRN (09:33)
[2022-05-22] MEDS ORDERED: MAGNESIUM SULF RIDER 4 GM/100 ML PREMIX IV PRN (09:33)
[2022-05-22] MEDS: INSULIN LISPRO 100 UNIT/ML SUBCUT SCH ×3 (11:24→21:05)
[2022-05-22] MEDS: ENOXAPARIN 40 MG/0.4 ML SYRINGE SUBCUT SCH (11:36)
[2022-05-22] MEDS: PRAMIPEXOLE 0.25 MG TABLET PO SCH (20:22)
[2022-05-22] MEDS: TAMSULOSIN 0.4 MG CAPSULE PO SCH (20:22)
[2022-05-23] MEDS: HYDROmorphone 1 MG/1 ML SYRINGE IV PRN ×2 (00:36→06:05)
[2022-05-23 02:20] LABS: Basophils % 0.3 % (0.0-0.8); Eosinophils # 0.4 10*3/uL (0.0-0.87); Eosinophils % 4.3 % (0.00-10.9); Hematocrit 25.3 VOL% (42.0-52.0); Hemoglobin 7.9 GM/DL (14.0-18.0); Immature Granulocytes % 0.5 %; Immature Granulocytes Absolute 0.05 #; Lymphocytes # 2.4 10*3/uL (1.4-4.0); Lymphocytes % 23.6 % (21.2-54.2); Mean Corpuscular HGB Conc 31.2 GM/DL (32-36); Mean Corpuscular Volume 91.3 FL (87-102); Monocytes # 0.9 10*3/uL (0.11-0.8); Monocytes % 8.5 % (1.7-12.7); Neutrophils % 62.8 % (38.7-73.9); Platelet Count 259 T/CUMM (130-400); Red Blood Count 2.77 MC/CUMM (3.8-5.5); Red Cell Distribution Width 14.7 % (9.3-17.3)
[2022-05-23 02:37] LABS: Calcium 8.7 MG/DL (8.5-10.1); Osmolality,Calculated 280.4 MOS/KG (273-304); Potassium 4.5 MMOL/L (3.5-5.1)
[2022-05-23] MEDS: VANCOMYCIN INJ 1,000 MG in SODIUM CHLORIDE 0.9% 250 ML IV SCH ×2 (06:04→17:31)
[2022-05-23] MEDS: IPRATROPIUM 500 MCG/2.5 ML NEB RESP TX SCH ×4 (06:49→19:12)
[2022-05-23] MEDS: INSULIN LISPRO 100 UNIT/ML SUBCUT SCH ×4 (07:40→21:28)
[2022-05-23] MEDS: FERROUS SULFATE 325 MG TABLET PO SCH (08:43)
[2022-05-23] MEDS: SIMVASTATIN 10 MG TABLET PO SCH (08:43)
[2022-05-23] MEDS: CETIRIZINE 10 MG TABLET PO SCH (08:43)
[2022-05-23] MEDS: amLODIPine 10 MG TABLET PO SCH (08:43)
[2022-05-23] MEDS: GABAPENTIN 100 MG CAPSULE PO SCH ×2 (08:44→21:26)
[2022-05-23] MEDS: PANTOPRAZOLE 40 MG TABLET PO SCH (08:44)
[2022-05-23] MEDS: NICOTINE 21 MG/24 HR PATCH TRANSDERM PRN (08:49)
[2022-05-23] MEDS: ENOXAPARIN 40 MG/0.4 ML SYRINGE SUBCUT SCH (09:16)
[2022-05-23] MEDS: DOCUSATE SODIUM 100 MG CAPSULE PO SCH ×2 (13:30→21:26)
[2022-05-23 17:56] LABS: M. Tuberculosis PCR Result Negative (Negative); M. Tuberculosis PCR Source SYNOVIAL
[2022-05-23] MEDS: TAMSULOSIN 0.4 MG CAPSULE PO SCH (21:27)
[2022-05-23] MEDS: PRAMIPEXOLE 0.25 MG TABLET PO SCH (21:27)
[2022-05-24] MEDS: VANCOMYCIN INJ 1,000 MG in SODIUM CHLORIDE 0.9% 250 ML IV SCH ×2 (05:50→17:00)
[2022-05-24 05:57] LABS: Basophils % 0.3 % (0.0-0.8); Eosinophils # 0.4 10*3/uL (0.0-0.87); Eosinophils % 4.6 % (0.00-10.9); Hematocrit 30.3 VOL% (42.0-52.0); Hemoglobin 9.4 GM/DL (14.0-18.0); Immature Granulocytes % 0.5 %; Immature Granulocytes Absolute 0.05 #; Lymphocytes # 2.3 10*3/uL (1.4-4.0); Lymphocytes % 25.3 % (21.2-54.2); Mean Corpuscular Volume 92.9 FL (87-102); Mean Platelet Volume 9.6 FL (9.6-12.0); Monocytes # 0.9 10*3/uL (0.11-0.8); Monocytes % 9.4 % (1.7-12.7); Neutrophils % 59.9 % (38.7-73.9); Platelet Count 321 T/CUMM (130-400); Red Blood Count 3.26 MC/CUMM (3.8-5.5); Red Cell Distribution Width 14.6 % (9.3-17.3); White Blood Count 9.25 T/CUMM (4-12)
[2022-05-24 06:16] LABS: Calcium 9.8 MG/DL (8.5-10.1); Osmolality,Calculated 273.8 MOS/KG (273-304); Phosphorous 4.8 MG/DL (2.5-4.9); Potassium 4.4 MMOL/L (3.5-5.1)
[2022-05-24] MEDS: IPRATROPIUM 500 MCG/2.5 ML NEB RESP TX SCH ×4 (07:05→21:35)
[2022-05-24 08:00] LABS: Sedimentation Rate-Westergren 98 MM/HR (0-20)
[2022-05-24] MEDS: PANTOPRAZOLE 40 MG TABLET PO SCH (08:14)
[2022-05-24] MEDS: FERROUS SULFATE 325 MG TABLET PO SCH (08:14)
[2022-05-24] MEDS: CETIRIZINE 10 MG TABLET PO SCH (08:14)
[2022-05-24] MEDS: CYANOCOBALAMIN 500 MCG TABLET PO SCH (08:14)
[2022-05-24] MEDS: amLODIPine 10 MG TABLET PO SCH (08:14)
[2022-05-24] MEDS: CHOLECALCIFEROL 1,000 UNIT TABLET PO SCH (08:14)
[2022-05-24] MEDS: DOCUSATE SODIUM 100 MG CAPSULE PO SCH ×2 (08:14→21:01)
[2022-05-24] MEDS: SIMVASTATIN 10 MG TABLET PO SCH (08:15)
[2022-05-24] MEDS: GABAPENTIN 100 MG CAPSULE PO SCH ×2 (08:15→21:01)
[2022-05-24] MEDS: INSULIN LISPRO 100 UNIT/ML SUBCUT SCH ×3 (09:09→16:53)
[2022-05-24] MEDS ORDERED: cefTRIAXone 1,000 MG in SODIUM CHLORIDE 0.9% 100 ML IV SCH (12:30)
[2022-05-24] MEDS: cefTRIAXone 2,000 MG in SODIUM CHLORIDE 0.9% 100 ML IV SCH (13:03)
[2022-05-24] MEDS: PRAMIPEXOLE 0.25 MG TABLET PO SCH (21:01)
[2022-05-24] MEDS: TAMSULOSIN 0.4 MG CAPSULE PO SCH (21:01)
[2022-05-25] MEDS: INSULIN LISPRO 100 UNIT/ML SUBCUT SCH ×4 (00:03→17:29)
[2022-05-25 05:05] LABS: Basophils % 0.4 % (0.0-0.8); Eosinophils # 0.4 10*3/uL (0.0-0.87); Eosinophils % 4.8 % (0.00-10.9); Hemoglobin 8.2 GM/DL (14.0-18.0); Immature Granulocytes % 0.8 %; Immature Granulocytes Absolute 0.07 #; Lymphocytes # 2.2 10*3/uL (1.4-4.0); Lymphocytes % 23.6 % (21.2-54.2); Mean Corpuscular HGB Conc 31.5 GM/DL (32-36); Mean Corpuscular Volume 91.9 FL (87-102); Mean Platelet Volume 9.6 FL (9.6-12.0); Monocytes # 0.8 10*3/uL (0.11-0.8); Monocytes % 9.2 % (1.7-12.7); Neutrophils % 61.2 % (38.7-73.9); Platelet Count 293 T/CUMM (130-400); Red Blood Count 2.83 MC/CUMM (3.8-5.5); Red Cell Distribution Width 14.6 % (9.3-17.3); White Blood Count 9.15 T/CUMM (4-12)
[2022-05-25 05:28] LABS: Calcium 9.3 MG/DL (8.5-10.1); Osmolality,Calculated 274.8 MOS/KG (273-304); Potassium 4.2 MMOL/L (3.5-5.1)
[2022-05-25] MEDS: VANCOMYCIN INJ 1,000 MG in SODIUM CHLORIDE 0.9% 250 ML IV SCH ×2 (06:02→17:30)
[2022-05-25 07:00] LABS: Sedimentation Rate-Westergren 104 MM/HR (0-20)
[2022-05-25] MEDS: IPRATROPIUM 500 MCG/2.5 ML NEB RESP TX SCH ×4 (07:42→21:27)
[2022-05-25] MEDS ORDERED: MAGNESIUM SULF RIDER 2 GM/50 ML PREMIX IV ONE (08:00)
[2022-05-25] MEDS: HYDROmorphone 1 MG/1 ML SYRINGE IV PRN ×3 (09:02→16:10)
[2022-05-25] MEDS: DOCUSATE SODIUM 100 MG CAPSULE PO SCH ×2 (10:19→20:34)
[2022-05-25] MEDS: GABAPENTIN 100 MG CAPSULE PO SCH ×2 (10:20→20:33)
[2022-05-25] MEDS: SIMVASTATIN 10 MG TABLET PO SCH (10:20)
[2022-05-25] MEDS: CYANOCOBALAMIN 500 MCG TABLET PO SCH (10:20)
[2022-05-25] MEDS: FERROUS SULFATE 325 MG TABLET PO SCH (10:20)
[2022-05-25] MEDS: CETIRIZINE 10 MG TABLET PO SCH (10:20)
[2022-05-25] MEDS: amLODIPine 10 MG TABLET PO SCH (10:20)
[2022-05-25] MEDS: CHOLECALCIFEROL 1,000 UNIT TABLET PO SCH (10:20)
[2022-05-25] MEDS: PANTOPRAZOLE 40 MG TABLET PO SCH (10:20)
[2022-05-25] MEDS ORDERED: fentaNYL 100 MCG/2 ML VIAL ONE ×2 (12:01→15:18)
[2022-05-25] MEDS ORDERED: MIDAZOLAM 2 MG/2 ML VIAL ONE (12:01)
[2022-05-25] MEDS ORDERED: LACTATED RINGERS 1,000 ML IV SCH (13:30)
[2022-05-25] MEDS ORDERED: ROCURONIUM 50 MG/5 ML VIAL IV ONE (14:13)
[2022-05-25] MEDS ORDERED: propofoL 200 MG/20 ML VIAL IV ONE (14:13)
[2022-05-25] MEDS ORDERED: ONDANSETRON 4 MG/2 ML VIAL ONE (14:13)
[2022-05-25] MEDS ORDERED: LIDOCAINE 2% 5 ML VIAL ONE (14:13)
[2022-05-25] MEDS ORDERED: SEVOFLURANE 1 UNIT/15 MINUTE INH ONE (14:13)
[2022-05-25] MEDS ORDERED: PHENYLEPHRINE 1 MG/10 ML SYRINGE IV ONE (14:19)
[2022-05-25] MEDS ORDERED: TRANEXAMIC ACID 1,000 MG/10 ML VIAL ONE (14:31)
[2022-05-25] MEDS: LACTATED RINGERS 1,000 ML IV SCH (14:47)
[2022-05-25] MEDS ORDERED: SUGAMMADEX 200 MG/2 ML VIAL IV ONE (14:58)
[2022-05-25] MEDS ORDERED: LACTATED RINGERS 1,000 ML IV ONE (15:05)
[2022-05-25] MEDS ORDERED: MORPHINE 2 MG/1 ML SYRINGE IV PRN (15:24)
[2022-05-25] MEDS: cefTRIAXone 2,000 MG in SODIUM CHLORIDE 0.9% 100 ML IV SCH (15:39)
[2022-05-25] MEDS ORDERED: MEPERIDINE 25 MG/1 ML VIAL IV PRN (16:05)
[2022-05-25] MEDS ORDERED: ONDANSETRON 4 MG/2 ML VIAL IV PRN (16:05)
[2022-05-25] MEDS: MORPHINE 2 MG/1 ML SYRINGE IV PRN ×2 (18:35→23:00)
[2022-05-25] MEDS: PRAMIPEXOLE 0.25 MG TABLET PO SCH (20:34)
[2022-05-25] MEDS: TAMSULOSIN 0.4 MG CAPSULE PO SCH (20:34)
[2022-05-26] MEDS: INSULIN LISPRO 100 UNIT/ML SUBCUT SCH ×5 (01:44→22:32)
[2022-05-26] MEDS: MORPHINE 2 MG/1 ML SYRINGE IV PRN (03:39)
[2022-05-26 05:25] LABS: Basophils % 0.3 % (0.0-0.8); Eosinophils # 0.2 10*3/uL (0.0-0.87); Eosinophils % 1.3 % (0.00-10.9); Hematocrit 20.8 VOL% (42.0-52.0); Hemoglobin 6.6 GM/DL (14.0-18.0); Immature Granulocytes % 0.8 %; Immature Granulocytes Absolute 0.12 #; Lymphocytes # 2.2 10*3/uL (1.4-4.0); Lymphocytes % 14.9 % (21.2-54.2); Mean Corpuscular HGB Conc 31.7 GM/DL (32-36); Mean Corpuscular Volume 91.2 FL (87-102); Mean Platelet Volume 9.6 FL (9.6-12.0); Monocytes # 1.2 10*3/uL (0.11-0.8); Neutrophils % 74.7 % (38.7-73.9); Platelet Count 267 T/CUMM (130-400); Red Blood Count 2.28 MC/CUMM (3.8-5.5); Red Cell Distribution Width 14.7 % (9.3-17.3); White Blood Count 14.96 T/CUMM (4-12)
[2022-05-26] MEDS ORDERED: SODIUM CHLORIDE 0.9% 1,000 ML IV PRN (05:34)
[2022-05-26 05:49] LABS: Calcium 9.1 MG/DL (8.5-10.1); Osmolality,Calculated 268.4 MOS/KG (273-304); Potassium 4.5 MMOL/L (3.5-5.1)
[2022-05-26] MEDS: VANCOMYCIN INJ 1,000 MG in SODIUM CHLORIDE 0.9% 250 ML IV SCH ×2 (06:00→17:55)
[2022-05-26 06:50] LABS: Sedimentation Rate-Westergren 93 MM/HR (0-20)
[2022-05-26] MEDS: IPRATROPIUM 500 MCG/2.5 ML NEB RESP TX SCH ×4 (07:34→19:15)
[2022-05-26] MEDS: SIMVASTATIN 10 MG TABLET PO SCH (08:54)
[2022-05-26] MEDS: DOCUSATE SODIUM 100 MG CAPSULE PO SCH ×2 (08:54→20:15)
[2022-05-26] MEDS: CHOLECALCIFEROL 1,000 UNIT TABLET PO SCH (08:54)
[2022-05-26] MEDS: CYANOCOBALAMIN 500 MCG TABLET PO SCH (08:54)
[2022-05-26] MEDS: GABAPENTIN 100 MG CAPSULE PO SCH ×2 (08:54→20:15)
[2022-05-26] MEDS: CETIRIZINE 10 MG TABLET PO SCH (08:55)
[2022-05-26] MEDS: PANTOPRAZOLE 40 MG TABLET PO SCH (08:55)
[2022-05-26] MEDS: amLODIPine 10 MG TABLET PO SCH (08:55)
[2022-05-26] MEDS: FERROUS SULFATE 325 MG TABLET PO SCH (08:55)
[2022-05-26] MEDS: ENOXAPARIN 40 MG/0.4 ML SYRINGE SUBCUT SCH (09:59)
[2022-05-26] MEDS: LACTATED RINGERS 1,000 ML IV SCH ×3 (16:15→17:26)
[2022-05-26] MEDS: cefTRIAXone 2,000 MG in SODIUM CHLORIDE 0.9% 100 ML IV SCH (16:15)
[2022-05-26] MEDS: HYDROmorphone 1 MG/1 ML SYRINGE IV PRN ×2 (16:16→23:22)
[2022-05-26 19:10] LABS: Hematocrit 25.9 VOL% (42.0-52.0)
[2022-05-26 19:22] LABS: Hemoglobin 8.5 GM/DL (14.0-18.0)
[2022-05-26] MEDS: PRAMIPEXOLE 0.25 MG TABLET PO SCH (20:15)
[2022-05-26] MEDS: TAMSULOSIN 0.4 MG CAPSULE PO SCH (20:16)
[2022-05-27] MEDS: LACTATED RINGERS 1,000 ML IV SCH ×3 (03:53→23:37)
[2022-05-27] MEDS: VANCOMYCIN INJ 1,000 MG in SODIUM CHLORIDE 0.9% 250 ML IV SCH ×2 (05:09→17:49)
[2022-05-27 05:38] LABS: Basophils % 0.3 % (0.0-0.8); Eosinophils # 0.4 10*3/uL (0.0-0.87); Eosinophils % 2.7 % (0.00-10.9); Hematocrit 30.5 VOL% (42.0-52.0); Hemoglobin 9.8 GM/DL (14.0-18.0); Immature Granulocytes % 0.9 %; Immature Granulocytes Absolute 0.13 #; Lymphocytes # 2.1 10*3/uL (1.4-4.0); Lymphocytes % 14.8 % (21.2-54.2); Mean Corpuscular HGB Conc 32.1 GM/DL (32-36); Mean Corpuscular Volume 92.1 FL (87-102); Mean Platelet Volume 9.9 FL (9.6-12.0); Monocytes # 1.3 10*3/uL (0.11-0.8); Monocytes % 9.6 % (1.7-12.7); Neutrophils % 71.7 % (38.7-73.9); Platelet Count 214 T/CUMM (130-400); Red Blood Count 3.31 MC/CUMM (3.8-5.5); Red Cell Distribution Width 14.7 % (9.3-17.3); White Blood Count 13.91 T/CUMM (4-12)
[2022-05-27 06:02] LABS: Calcium 9.1 MG/DL (8.5-10.1); Osmolality,Calculated 276.8 MOS/KG (273-304); Potassium 4.3 MMOL/L (3.5-5.1)
[2022-05-27] MEDS: IPRATROPIUM 500 MCG/2.5 ML NEB RESP TX SCH ×4 (07:28→18:59)
[2022-05-27] MEDS ORDERED: MAGNESIUM SULF RIDER 2 GM/50 ML PREMIX IV ONE (08:00)
[2022-05-27] MEDS: INSULIN LISPRO 100 UNIT/ML SUBCUT SCH ×4 (08:14→22:20)
[2022-05-27] MEDS: SIMVASTATIN 10 MG TABLET PO SCH (08:33)
[2022-05-27] MEDS: DOCUSATE SODIUM 100 MG CAPSULE PO SCH ×2 (08:34→20:38)
[2022-05-27] MEDS: PANTOPRAZOLE 40 MG TABLET PO SCH (08:34)
[2022-05-27] MEDS: CYANOCOBALAMIN 500 MCG TABLET PO SCH (08:34)
[2022-05-27] MEDS: FERROUS SULFATE 325 MG TABLET PO SCH (08:34)
[2022-05-27] MEDS: GABAPENTIN 100 MG CAPSULE PO SCH ×2 (08:34→20:37)
[2022-05-27] MEDS: amLODIPine 10 MG TABLET PO SCH (08:34)
[2022-05-27] MEDS: CHOLECALCIFEROL 1,000 UNIT TABLET PO SCH (08:34)
[2022-05-27] MEDS: CETIRIZINE 10 MG TABLET PO SCH (08:34)
[2022-05-27] MEDS: ENOXAPARIN 40 MG/0.4 ML SYRINGE SUBCUT SCH (11:47)
[2022-05-27] MEDS: KETOROLAC 30 MG/1 ML VIAL IV SCH ×3 (11:49→23:19)
[2022-05-27] MEDS: cefTRIAXone 2,000 MG in SODIUM CHLORIDE 0.9% 100 ML IV SCH (13:40)
[2022-05-27] MEDS: TAMSULOSIN 0.4 MG CAPSULE PO SCH (20:37)
[2022-05-27] MEDS: PRAMIPEXOLE 0.25 MG TABLET PO SCH (20:37)
[2022-05-28 04:51] LABS: Basophils % 0.3 % (0.0-0.8); Eosinophils # 0.5 10*3/uL (0.0-0.87); Eosinophils % 4.7 % (0.00-10.9); Hematocrit 25.3 VOL% (42.0-52.0); Hemoglobin 8.2 GM/DL (14.0-18.0); Immature Granulocytes % 0.9 %; Lymphocytes # 2.2 10*3/uL (1.4-4.0); Lymphocytes % 19.5 % (21.2-54.2); Mean Corpuscular HGB Conc 32.4 GM/DL (32-36); Mean Corpuscular Volume 91.7 FL (87-102); Mean Platelet Volume 9.9 FL (9.6-12.0); Neutrophils % 65.6 % (38.7-73.9); Platelet Count 223 T/CUMM (130-400); Red Blood Count 2.76 MC/CUMM (3.8-5.5); Red Cell Distribution Width 14.8 % (9.3-17.3); White Blood Count 11.05 T/CUMM (4-12)
[2022-05-28 05:09] LABS: Alanine Aminotransferase 11 U/L (16-61); Albumin 2.6 G/DL (3.4-5.0); Alkaline Phosphatase 68 U/L (45-117); Aspartate Amino Transferase 13 U/L (0-37); Bilirubin,Total < 0.39 MG/DL (0.20-1.00); Blood Urea Nitrogen 23 MG/DL (7-18); Calcium 8.6 MG/DL (8.5-10.1); Carbon Dioxide 22 MMOL/L (21-32); Chloride 109 MMOL/L (98-107); Glucose 105 MG/DL (74-106); Osmolality,Calculated 280.5 MOS/KG (273-304); Potassium 4.2 MMOL/L (3.5-5.1); Sodium 139 MMOL/L (136-145); Total Protein 6.7 G/DL (6.4-8.2)
[2022-05-28] MEDS: KETOROLAC 30 MG/1 ML VIAL IV SCH ×2 (05:49→10:03)
[2022-05-28] MEDS: VANCOMYCIN INJ 1,000 MG in SODIUM CHLORIDE 0.9% 250 ML IV SCH (05:51)
[2022-05-28] MEDS: IPRATROPIUM 500 MCG/2.5 ML NEB RESP TX SCH ×4 (07:15→19:15)
[2022-05-28] MEDS: CHOLECALCIFEROL 1,000 UNIT TABLET PO SCH (09:52)
[2022-05-28] MEDS: PANTOPRAZOLE 40 MG TABLET PO SCH (09:52)
[2022-05-28] MEDS: GABAPENTIN 100 MG CAPSULE PO SCH ×2 (09:53→20:40)
[2022-05-28] MEDS: amLODIPine 10 MG TABLET PO SCH (09:53)
[2022-05-28] MEDS: CETIRIZINE 10 MG TABLET PO SCH (09:53)
[2022-05-28] MEDS: DOCUSATE SODIUM 100 MG CAPSULE PO SCH ×2 (09:53→20:41)
[2022-05-28] MEDS: ENOXAPARIN 40 MG/0.4 ML SYRINGE SUBCUT SCH (09:53)
[2022-05-28] MEDS: CYANOCOBALAMIN 500 MCG TABLET PO SCH (09:53)
[2022-05-28] MEDS: NICOTINE 21 MG/24 HR PATCH TRANSDERM PRN (09:54)
[2022-05-28] MEDS: FERROUS SULFATE 325 MG TABLET PO SCH (09:54)
[2022-05-28] MEDS: LACTATED RINGERS 1,000 ML IV SCH (09:54)
[2022-05-28] MEDS: INSULIN LISPRO 100 UNIT/ML SUBCUT SCH ×4 (11:12→20:41)
[2022-05-28] MEDS: cefTRIAXone 2,000 MG in SODIUM CHLORIDE 0.9% 100 ML IV SCH (13:37)
[2022-05-28] MEDS: TAMSULOSIN 0.4 MG CAPSULE PO SCH (20:40)
[2022-05-28] MEDS: PRAMIPEXOLE 0.25 MG TABLET PO SCH (20:41)
[2022-05-28] MEDS ORDERED: SIMVASTATIN 10 MG TABLET PO SCH (21:00)
[2022-05-29] MEDS: LACTATED RINGERS 1,000 ML IV SCH ×2 (04:43→13:08)
[2022-05-29 06:05] LABS: White Blood Count 12.45 T/CUMM (4-12)
[2022-05-29 06:06] LABS: Basophils % 0.2 % (0.0-0.8); Eosinophils # 0.5 10*3/uL (0.0-0.87); Eosinophils % 3.9 % (0.00-10.9); Hematocrit 25.8 VOL% (42.0-52.0); Hemoglobin 8.3 GM/DL (14.0-18.0); Immature Granulocytes % 0.6 %; Immature Granulocytes Absolute 0.08 #; Lymphocytes # 1.9 10*3/uL (1.4-4.0); Lymphocytes % 15.3 % (21.2-54.2); Mean Corpuscular HGB Conc 32.2 GM/DL (32-36); Mean Corpuscular Volume 90.8 FL (87-102); Mean Platelet Volume 9.8 FL (9.6-12.0); Monocytes % 8.3 % (1.7-12.7); Neutrophils % 71.7 % (38.7-73.9); Platelet Count 275 T/CUMM (130-400); Red Blood Count 2.84 MC/CUMM (3.8-5.5); Red Cell Distribution Width 14.6 % (9.3-17.3)
[2022-05-29 06:26] LABS: Alanine Aminotransferase 12 U/L (16-61); Albumin 2.6 G/DL (3.4-5.0); Alkaline Phosphatase 81 U/L (45-117); Aspartate Amino Transferase 12 U/L (0-37); Bilirubin,Total < 0.39 MG/DL (0.20-1.00); Blood Urea Nitrogen 17 MG/DL (7-18); Calcium 9.3 MG/DL (8.5-10.1); Carbon Dioxide 22 MMOL/L (21-32); Chloride 107 MMOL/L (98-107); Glucose 95 MG/DL (74-106); Osmolality,Calculated 278.5 MOS/KG (273-304); Potassium 4.3 MMOL/L (3.5-5.1); Sodium 139 MMOL/L (136-145); Total Protein 6.7 G/DL (6.4-8.2)
[2022-05-29] MEDS: IPRATROPIUM 500 MCG/2.5 ML NEB RESP TX SCH ×4 (07:51→20:58)
[2022-05-29] MEDS: GABAPENTIN 100 MG CAPSULE PO SCH ×2 (08:07→21:13)
[2022-05-29] MEDS: DOCUSATE SODIUM 100 MG CAPSULE PO SCH ×2 (08:07→21:13)
[2022-05-29] MEDS: PANTOPRAZOLE 40 MG TABLET PO SCH (08:08)
[2022-05-29] MEDS: amLODIPine 10 MG TABLET PO SCH (08:08)
[2022-05-29] MEDS: CHOLECALCIFEROL 1,000 UNIT TABLET PO SCH (08:08)
[2022-05-29] MEDS: FERROUS SULFATE 325 MG TABLET PO SCH (08:08)
[2022-05-29] MEDS: CETIRIZINE 10 MG TABLET PO SCH (08:08)
[2022-05-29] MEDS: CYANOCOBALAMIN 500 MCG TABLET PO SCH (08:10)
[2022-05-29] MEDS: INSULIN LISPRO 100 UNIT/ML SUBCUT SCH ×4 (08:10→21:14)
[2022-05-29] MEDS: ENOXAPARIN 40 MG/0.4 ML SYRINGE SUBCUT SCH (10:12)
[2022-05-29] MEDS: cefTRIAXone 2,000 MG in SODIUM CHLORIDE 0.9% 100 ML IV SCH (13:45)
[2022-05-29] MEDS: TAMSULOSIN 0.4 MG CAPSULE PO SCH (21:13)
[2022-05-29] MEDS: PRAMIPEXOLE 0.25 MG TABLET PO SCH (21:14)
[2022-05-30 05:23] LABS: Basophils % 0.3 % (0.0-0.8); Eosinophils # 0.5 10*3/uL (0.0-0.87); Eosinophils % 5.1 % (0.00-10.9); Hematocrit 26.1 VOL% (42.0-52.0); Hemoglobin 8.3 GM/DL (14.0-18.0); Immature Granulocytes % 0.5 %; Immature Granulocytes Absolute 0.05 #; Lymphocytes # 2.1 10*3/uL (1.4-4.0); Lymphocytes % 22.5 % (21.2-54.2); Mean Corpuscular HGB Conc 31.8 GM/DL (32-36); Mean Corpuscular Volume 92.2 FL (87-102); Mean Platelet Volume 9.2 FL (9.6-12.0); Monocytes % 10.2 % (1.7-12.7); Neutrophils % 61.4 % (38.7-73.9); Platelet Count 292 T/CUMM (130-400); Red Blood Count 2.83 MC/CUMM (3.8-5.5); Red Cell Distribution Width 14.5 % (9.3-17.3); White Blood Count 9.53 T/CUMM (4-12)
[2022-05-30] MEDS: LACTATED RINGERS 1,000 ML IV SCH (05:31)
[2022-05-30 05:40] LABS: Alanine Aminotransferase 15 U/L (16-61); Albumin 2.7 G/DL (3.4-5.0); Alkaline Phosphatase 68 U/L (45-117); Aspartate Amino Transferase 10 U/L (0-37); Bilirubin,Total < 0.39 MG/DL (0.20-1.00); Blood Urea Nitrogen 16 MG/DL (7-18); Calcium 9.2 MG/DL (8.5-10.1); Carbon Dioxide 22 MMOL/L (21-32); Chloride 105 MMOL/L (98-107); Glucose 96 MG/DL (74-106); Osmolality,Calculated 273.8 MOS/KG (273-304); Potassium 4.3 MMOL/L (3.5-5.1); Sodium 137 MMOL/L (136-145); Total Protein 7.2 G/DL (6.4-8.2)
[2022-05-30] MEDS: NICOTINE 21 MG/24 HR PATCH TRANSDERM PRN (07:36)
[2022-05-30] MEDS: INSULIN LISPRO 100 UNIT/ML SUBCUT SCH ×4 (07:37→20:21)
[2022-05-30] MEDS: IPRATROPIUM 500 MCG/2.5 ML NEB RESP TX SCH ×4 (07:45→19:26)
[2022-05-30] MEDS: CETIRIZINE 10 MG TABLET PO SCH (08:03)
[2022-05-30] MEDS: GABAPENTIN 100 MG CAPSULE PO SCH ×2 (08:03→20:21)
[2022-05-30] MEDS: amLODIPine 10 MG TABLET PO SCH (08:03)
[2022-05-30] MEDS: FERROUS SULFATE 325 MG TABLET PO SCH (08:03)
[2022-05-30] MEDS: DOCUSATE SODIUM 100 MG CAPSULE PO SCH ×2 (08:03→20:21)
[2022-05-30] MEDS: CHOLECALCIFEROL 1,000 UNIT TABLET PO SCH (08:03)
[2022-05-30] MEDS: PANTOPRAZOLE 40 MG TABLET PO SCH (08:03)
[2022-05-30] MEDS: CYANOCOBALAMIN 500 MCG TABLET PO SCH (08:03)
[2022-05-30] MEDS: ENOXAPARIN 40 MG/0.4 ML SYRINGE SUBCUT SCH (09:03)
[2022-05-30] MEDS: cefTRIAXone 2,000 MG in SODIUM CHLORIDE 0.9% 100 ML IV SCH (14:03)
[2022-05-30] MEDS: TAMSULOSIN 0.4 MG CAPSULE PO SCH (20:21)
[2022-05-30] MEDS: PRAMIPEXOLE 0.25 MG TABLET PO SCH (20:21)
[2022-05-31 05:57] LABS: Basophils % 0.3 % (0.0-0.8); Eosinophils # 0.4 10*3/uL (0.0-0.87); Eosinophils % 4.6 % (0.00-10.9); Hematocrit 26.2 VOL% (42.0-52.0); Hemoglobin 8.2 GM/DL (14.0-18.0); Immature Granulocytes % 0.5 %; Immature Granulocytes Absolute 0.05 #; Lymphocytes # 2.4 10*3/uL (1.4-4.0); Lymphocytes % 25.8 % (21.2-54.2); Mean Corpuscular HGB Conc 31.3 GM/DL (32-36); Mean Corpuscular Volume 92.3 FL (87-102); Mean Platelet Volume 9.4 FL (9.6-12.0); Monocytes % 10.6 % (1.7-12.7); Neutrophils % 58.2 % (38.7-73.9); Platelet Count 299 T/CUMM (130-400); Red Blood Count 2.84 MC/CUMM (3.8-5.5); Red Cell Distribution Width 14.3 % (9.3-17.3); White Blood Count 9.28 T/CUMM (4-12)
[2022-05-31 06:20] LABS: Alanine Aminotransferase 14 U/L (16-61); Albumin 2.7 G/DL (3.4-5.0); Alkaline Phosphatase 58 U/L (45-117); Aspartate Amino Transferase 10 U/L (0-37); Bilirubin,Total < 0.39 MG/DL (0.20-1.00); Blood Urea Nitrogen 15 MG/DL (7-18); Calcium 9.6 MG/DL (8.5-10.1); Carbon Dioxide 22 MMOL/L (21-32); Chloride 106 MMOL/L (98-107); Glucose 90 MG/DL (74-106); Potassium 4.2 MMOL/L (3.5-5.1); Sodium 136 MMOL/L (136-145); Total Protein 7.1 G/DL (6.4-8.2)
[2022-05-31] MEDS: IPRATROPIUM 500 MCG/2.5 ML NEB RESP TX SCH ×4 (07:13→18:25)
[2022-05-31] MEDS: CYANOCOBALAMIN 500 MCG TABLET PO SCH (08:26)
[2022-05-31] MEDS: CETIRIZINE 10 MG TABLET PO SCH (08:26)
[2022-05-31] MEDS: CHOLECALCIFEROL 1,000 UNIT TABLET PO SCH (08:26)
[2022-05-31] MEDS: amLODIPine 10 MG TABLET PO SCH (08:26)
[2022-05-31] MEDS: FERROUS SULFATE 325 MG TABLET PO SCH (08:27)
[2022-05-31] MEDS: PANTOPRAZOLE 40 MG TABLET PO SCH (08:27)
[2022-05-31] MEDS: DOCUSATE SODIUM 100 MG CAPSULE PO SCH ×2 (08:27→21:41)
[2022-05-31] MEDS: GABAPENTIN 100 MG CAPSULE PO SCH ×2 (08:27→21:42)
[2022-05-31] MEDS: INSULIN LISPRO 100 UNIT/ML SUBCUT SCH ×4 (08:29→23:21)
[2022-05-31] MEDS: LACTATED RINGERS 1,000 ML IV SCH ×2 (09:28→23:26)
[2022-05-31] MEDS: ENOXAPARIN 40 MG/0.4 ML SYRINGE SUBCUT SCH (09:35)
[2022-05-31] MEDS ORDERED: hydrALAZINE 20 MG/1 ML VIAL IV PRN (10:10)
[2022-05-31] MEDS: cefTRIAXone 2,000 MG in SODIUM CHLORIDE 0.9% 100 ML IV SCH (13:26)
[2022-05-31] MEDS: PRAMIPEXOLE 0.25 MG TABLET PO SCH (21:41)
[2022-05-31] MEDS: TAMSULOSIN 0.4 MG CAPSULE PO SCH (21:41)
[2022-06-01 05:32] LABS: Basophils % 0.3 % (0.0-0.8); Eosinophils # 0.4 10*3/uL (0.0-0.87); Eosinophils % 3.4 % (0.00-10.9); Hematocrit 26.9 VOL% (42.0-52.0); Hemoglobin 8.6 GM/DL (14.0-18.0); Immature Granulocytes % 0.7 %; Immature Granulocytes Absolute 0.09 #; Lymphocytes # 2.4 10*3/uL (1.4-4.0); Lymphocytes % 19.9 % (21.2-54.2); Mean Corpuscular Volume 90.3 FL (87-102); Monocytes % 8.4 % (1.7-12.7); Neutrophils % 67.3 % (38.7-73.9); Platelet Count 322 T/CUMM (130-400); Red Blood Count 2.98 MC/CUMM (3.8-5.5); Red Cell Distribution Width 14.3 % (9.3-17.3); White Blood Count 12.02 T/CUMM (4-12)
[2022-06-01 05:54] LABS: Alanine Aminotransferase 14 U/L (16-61); Alkaline Phosphatase 72 U/L (45-117); Aspartate Amino Transferase 10 U/L (0-37); Bilirubin,Total < 0.39 MG/DL (0.20-1.00); Blood Urea Nitrogen 18 MG/DL (7-18); Calcium 9.4 MG/DL (8.5-10.1); Carbon Dioxide 22 MMOL/L (21-32); Chloride 106 MMOL/L (98-107); Glucose 98 MG/DL (74-106); Osmolality,Calculated 274.8 MOS/KG (273-304); Potassium 4.3 MMOL/L (3.5-5.1); Sodium 137 MMOL/L (136-145); Total Protein 7.5 G/DL (6.4-8.2)
[2022-06-01] MEDS: PANTOPRAZOLE 40 MG TABLET PO SCH (08:19)
[2022-06-01] MEDS: DOCUSATE SODIUM 100 MG CAPSULE PO SCH ×2 (08:19→21:24)
[2022-06-01] MEDS: GABAPENTIN 100 MG CAPSULE PO SCH ×2 (08:19→21:23)
[2022-06-01] MEDS: FERROUS SULFATE 325 MG TABLET PO SCH (08:19)
[2022-06-01] MEDS: CETIRIZINE 10 MG TABLET PO SCH (08:19)
[2022-06-01] MEDS: CYANOCOBALAMIN 500 MCG TABLET PO SCH (08:19)
[2022-06-01] MEDS: CHOLECALCIFEROL 1,000 UNIT TABLET PO SCH (08:19)
[2022-06-01] MEDS: amLODIPine 10 MG TABLET PO SCH (08:20)
[2022-06-01] MEDS: INSULIN LISPRO 100 UNIT/ML SUBCUT SCH ×4 (08:20→23:17)
[2022-06-01] MEDS: IPRATROPIUM 500 MCG/2.5 ML NEB RESP TX SCH ×4 (09:01→19:30)
[2022-06-01] MEDS ORDERED: MAGNESIUM SULF RIDER 2 GM/50 ML PREMIX IV ONE (09:30)
[2022-06-01] MEDS: ENOXAPARIN 40 MG/0.4 ML SYRINGE SUBCUT SCH (09:30)
[2022-06-01] MEDS: cefTRIAXone 2,000 MG in SODIUM CHLORIDE 0.9% 100 ML IV SCH (12:10)
[2022-06-01] MEDS: LACTATED RINGERS 1,000 ML IV SCH (16:57)
[2022-06-01] MEDS: TAMSULOSIN 0.4 MG CAPSULE PO SCH (21:24)
[2022-06-01] MEDS: PRAMIPEXOLE 0.25 MG TABLET PO SCH (21:24)
[2022-06-02 04:49] LABS: Basophils % 0.3 % (0.0-0.8); Eosinophils # 0.4 10*3/uL (0.0-0.87); Eosinophils % 3.5 % (0.00-10.9); Hematocrit 26.6 VOL% (42.0-52.0); Hemoglobin 8.2 GM/DL (14.0-18.0); Immature Granulocytes % 0.7 %; Immature Granulocytes Absolute 0.08 #; Lymphocytes # 2.4 10*3/uL (1.4-4.0); Lymphocytes % 20.8 % (21.2-54.2); Mean Corpuscular HGB Conc 30.8 GM/DL (32-36); Mean Corpuscular Volume 91.4 FL (87-102); Mean Platelet Volume 8.8 FL (9.6-12.0); Monocytes # 0.9 10*3/uL (0.11-0.8); Monocytes % 8.2 % (1.7-12.7); Neutrophils % 66.5 % (38.7-73.9); Platelet Count 306 T/CUMM (130-400); Red Blood Count 2.91 MC/CUMM (3.8-5.5); Red Cell Distribution Width 14.2 % (9.3-17.3); White Blood Count 11.48 T/CUMM (4-12)
[2022-06-02 05:18] LABS: Calcium 9.5 MG/DL (8.5-10.1); Osmolality,Calculated 271.1 MOS/KG (273-304); Potassium 4.4 MMOL/L (3.5-5.1)
[2022-06-02] MEDS: IPRATROPIUM 500 MCG/2.5 ML NEB RESP TX SCH ×2 (07:15→11:32)
[2022-06-02] MEDS: INSULIN LISPRO 100 UNIT/ML SUBCUT SCH ×2 (07:49→11:58)
[2022-06-02] MEDS: ENOXAPARIN 40 MG/0.4 ML SYRINGE SUBCUT SCH ×2 (08:08→10:20)
[2022-06-02] MEDS: DOCUSATE SODIUM 100 MG CAPSULE PO SCH (08:09)
[2022-06-02] MEDS: CYANOCOBALAMIN 500 MCG TABLET PO SCH (08:09)
[2022-06-02] MEDS: FERROUS SULFATE 325 MG TABLET PO SCH (08:09)
[2022-06-02] MEDS: CHOLECALCIFEROL 1,000 UNIT TABLET PO SCH (08:09)
[2022-06-02] MEDS: PANTOPRAZOLE 40 MG TABLET PO SCH (08:09)
[2022-06-02] MEDS: GABAPENTIN 100 MG CAPSULE PO SCH (08:09)
[2022-06-02] MEDS: CETIRIZINE 10 MG TABLET PO SCH (08:09)
[2022-06-02] MEDS: amLODIPine 10 MG TABLET PO SCH (08:09)
[2022-06-02] MEDS: NICOTINE 21 MG/24 HR PATCH TRANSDERM PRN (10:15)
[2022-06-02 12:01] VITALS: BP 140/70
[2022-06-02] MEDS: cefTRIAXone 2,000 MG in SODIUM CHLORIDE 0.9% 100 ML IV SCH (12:36)
== END 2022-06-02 14:57 | disposition home health service (06) | DRG 629 ==
LOC: N.ED 14:18 → N.EDINP 16:55 → SUATTDRO 16:55 → N.3E 17:49
PROVIDERS: ADMIT Internal Medicine; ATTEND Internal Medicine